=== PATIENT | female | born 1965 | race Caucasian/White ===

== ENCOUNTER 2017-03-31 06:58 | Emergency (ER) | payer OTHER ==
[2017-03-31] MEDS ORDERED: IBUPROFEN 600 MG TAB PO STA (07:14)
--- NOTE | 2017-03-31 07:20 | ED ---
Lower Extremity Injury HPI - General Chief Complaint: Extremity Injury, Upper Stated Complaint: Ankle pain Time Seen by Provider: 03/31/17 07:01 Source: patient Mode of arrival: ambulatory Limitations: no limitations - History of Present Illness Initial Comments: This is a 51-year-old female who presents emergency department for right ankle pain. She states that she was walking when she rolled her right ankle. She states that she immediately had pain however was able to continue to ambulate on the ankle. She states the pain is located on the lateral ankle and worse with movement or weightbearing. It seems to radiate down into the lateral aspect of her foot. She denies any knee pain or knee discomfort. Denies any other injuries. - Related Data Home Medications Medication Instructions Recorded Confirmed Furosemide [Lasix] 20 mg PO DAILY 08/15/14 08/15/14 Previous Rx's Medication Instructions Recorded Erythromycin Ophth Oint [Romycin 1 applic LEFT EYE TID #1 tube 08/15/14 Ophth Oint] Allergies Allergy/AdvReac Type Severity Reaction Status Date / Time venom-honey bee Allergy Swelling Verified 03/31/17 07:06 [bee venom (honey bee)] Review of Systems ROS Statement: Those systems with pertinent positive or pertinent negative responses have been documented in the HPI. ROS Other: All systems not noted in ROS Statement are negative. Past Medical History Past Medical History: Asthma, Sleep Apnea/CPAP/BIPAP Additional Past Medical History / Comment(s): HX OF VSD History of Any Multi-Drug Resistant Organisms: None Reported Past Surgical History: Bariatric Surgery, Hysterectomy, Orthopedic Surgery, Tonsillectomy, Tubal Ligation Additional Past Surgical History / Comment(s): LAP BAND SX NOW REMOVED, RT HAND SX Past Anesthesia/Blood Transfusion Reactions: No Reported Reaction Past Psychological History: Anxiety, Depression Smoking Status: Never smoker Past Alcohol Use History: None Reported Past Drug Use History: None Reported General Exam - General Exam Comments Initial Comments: Constitutional: Awake alert Appears comfortable Head: Normocephalic atraumatic Eyes: no conjunctival injection No scleral icterus EOMI Neck: No JVD Supple Heart: Regular rate rhythm normal S1-S2 no murmurs Lungs: Clear to auscultation bilaterally No wheezing No rales Abdomen: Soft nondistended nontender Extremities: Non edematous DP pulses intact Radial pulses intact, patient has mild tenderness along the lateral malleolus of the right foot and along the fifth metatarsal of the right foot. There is no significant ecchymosis or swelling. There is full range of motion, ankle mortise is intact. Anterior drawer testing is normal. Neurovascularly intact distal to the injury. Neuro: A&Ox3 No focal neurologic deficits Psych: Appropriate mood and affect Limitations: no limitations Course Vital Signs 03/31/17 07:00 Temperature 98 F Pulse Rate 78 Respiratory 20 Rate Blood Pressure 145/78 O2 Sat by Pulse 94 L Oximetry Medical Decision Making - Medical Decision Making This is a 51-year-old female who presents emergency department for right ankle pain after rolling her ankle. The patient had x-rays performed that showed a what appears to be new right distal lateral malleolus avulsion fracture. The joint was otherwise stable. The patient was placed in an air splint and written for crutches for home. Told nonweightbearing until reevaluated by orthopedics. The patient declined pain medications for home and states that she will use Tylenol or Motrin. Advised to return if she has worsening or changing symptoms. All questions were answered. Disposition Clinical Impression: Avulsion fracture of ankle Disposition: HOME SELF-CARE Condition: Stable Instructions: Avulsion Fracture (ED) Referrals: Dilcia Escoto MD [Primary Care Provider] - 1-2 days Brooks Hardin MD [STAFF PHYSICIAN] - 1-2 days
--- NOTE | 2017-03-31 07:43 | XR ---
EXAMINATION TYPE: XR ankle complete RT DATE OF EXAM: 03/31/2017 COMPARISON: NONE HISTORY: 51-year-old female ankle/foot pain after trauma, fall, lateral swelling TECHNIQUE: Previous FINDINGS: Corticated ossific densities below both malleoli. However, a curvilinear density at the inferior tip of the lateral malleolus may represent an acute minimally displaced fracture. There is some circumfer ential soft tissue swelling at the ankle. Talar dome appears intact. Ankle mortise is otherwise congr uent. Small to moderate-sized plantar calcaneal spur. Some posterior soft tissue swelling at the ankl e. IMPRESSION: 1. Chronic ununited fracture fragments below both malleoli. However, findings suspicious for a superi mposed, minimally displaced acute avulsion fracture from the inferior tip of the lateral malleolus. 2. Soft tissue swelling at the ankle and plantar calcaneal spur.
--- NOTE | 2017-03-31 07:44 | XR ---
EXAMINATION TYPE: XR foot complete RT DATE OF EXAM: 03/31/2017 COMPARISON: NONE HISTORY: 51-year-old female with ankle/foot pain after trauma, fall TECHNIQUE: 3 views FINDINGS: Redemonstrated tiny Nettles type A fracture lateral malleolus. Bipartite tibial sesamoid. Joint spaces throughout the foot are maintained. Plantar calcaneal spur. No other acute fracture or dislocation is seen. IMPRESSION: No additional acute osseous abnormality seen within the foot.
[2017-03-31 08:19] VITALS: BP 129/68; PULSE 66; RESP 18; TEMP 97.3
== END 2017-03-31 08:19 | disposition home or self-care (01) ==
LOC: EC 06:58
DX: S82.61XA Displaced fracture of lateral malleolus of right fibula, initial encounter for closed fracture (principal); G47.30 Sleep apnea, unspecified; Z79.899 Other long term (current) drug therapy; Z91.030 Bee allergy status; Z99.89 Dependence on other enabling machines and devices; X50.1XXA Overexertion from prolonged static or awkward postures, initial encounter; Y93.01 Activity, walking, marching and hiking; Y92.009 Unspecified place in unspecified non-institutional (private) residence as the place of occurrence of the external cause
CPT/HCPCS: 73610; 73630; 99283; L4350

== ENCOUNTER → 2017-06-24 | Outpatient (CLI) | payer OTHER ==
--- NOTE | 2017-06-26 11:12 | MM ---
Reason for exam: screening (asymptomatic). Last mammogram was performed 2 years and 3 months ago. History: Took hormonal contraceptives for 19 years beginning at age 14. Physical Findings: A clinical breast exam by your physician is recommended on an annual basis and results should be correlated with mammographic findings. MG 3D Screening Mammo W/Cad Bilateral CC and MLO view(s) were taken. Prior study comparison: March 29, 2015, bilateral MG 3d screening mammo w/cad. February 01, 2013, bilateral digital screening mammo w/CAD. There are scattered fibroglandular densities. No significant changes when compared with prior studies. ASSESSMENT: Negative, BI-RAD 1 RECOMMENDATION: Routine screening mammogram of both breasts in 1 year.
== END | disposition home or self-care (01) ==
LOC: RADMAMWWP 14:31
PROVIDERS: ATTEND Internal Medicine
DX: Z12.31 Encounter for screening mammogram for malignant neoplasm of breast (principal)
CPT/HCPCS: 77063; 77067

== ENCOUNTER 2019-05-10 19:06 | Inpatient (IN) | payer OTHER ==
[2019-05-10] MEDS ORDERED: IBUPROFEN 600 MG TAB PO STA (19:27)
--- NOTE | 2019-05-10 19:31 | ED ---
General Adult HPI - General Chief complaint: Upper Respiratory Infection Stated complaint: COVID symptoms Time Seen by Provider: 05/10/19 19:12 Source: patient Mode of arrival: ambulatory Limitations: no limitations - History of Present Illness Initial comments: Patient is a 53-year-old female history of exercise-induced asthma. presenting to the emergency Department with a chief complaint of cough and fever. Patient states symptoms have been ongoing for less than a week. Patient reports a nonproductive cough. Does report occasional sore throat after coughing fits. States she is not able to get a full night of sleep due to the coughing. That she went to the urgent care and was tested for influenza negative. States Covid test pending. Does report taking Tylenol at home and she is able to break the fever but it's refractory. Also reports shortness of breath during this time with occasional wheezing. Nonsmoker. She also reports loss of taste and smell over the last several days. Denies focal neural deficits. - Related Data Home Medications Medication Instructions Recorded Confirmed Albuterol Inhaler [Ventolin Hfa 1 - 2 puff INHALATION RT-Q6H PRN 05/10/19 05/10/19 Inhaler] Benzonatate [Tessalon Perles] 100 mg PO TID PRN 05/10/19 05/10/19 Escitalopram [Lexapro] 20 mg PO DAILY 05/10/19 05/10/19 Glucos Sul 2Kcl/MSM/Chond/C/Mn 1 cap PO DAILY 05/10/19 05/10/19 [Glucosamine Chondroitin Cap] Levothyroxine Sodium [Synthroid] 50 mcg PO DAILY 05/10/19 05/10/19 Lysine [l-Lysine] 500 mg PO DAILY 05/10/19 05/10/19 Turmeric Root Extract [Turmeric] 500 mg PO DAILY 05/10/19 05/10/19 Allergies Allergy/AdvReac Type Severity Reaction Status Date / Time venom-honey bee Allergy Swelling Verified 05/10/19 21:43 [bee venom (honey bee)] Review of Systems ROS Statement: Those systems with pertinent positive or pertinent negative responses have been documented in the HPI. ROS Other: All systems not noted in ROS Statement are negative. Past Medical History Past Medical History: Asthma, Sleep Apnea/CPAP/BIPAP Additional Past Medical History / Comment(s): HX OF VSD History of Any Multi-Drug Resistant Organisms: None Reported Past Surgical History: Bariatric Surgery, Hysterectomy, Orthopedic Surgery, Tonsillectomy, Tubal Ligation Additional Past Surgical History / Comment(s): LAP BAND SX NOW REMOVED, RT HAND SX Past Anesthesia/Blood Transfusion Reactions: No Reported Reaction Past Psychological History: Anxiety, Depression Smoking Status: Never smoker Past Alcohol Use History: None Reported Past Drug Use History: None Reported General Exam Limitations: no limitations General appearance: alert, in no apparent distress Head exam: Present: atraumatic, normocephalic, normal inspection Eye exam: Present: normal appearance, PERRL, EOMI Pupils: Present: normal accommodation ENT exam: Present: normal exam, normal oropharynx, mucous membranes moist, TM's normal bilaterally, normal external ear exam Neck exam: Present: normal inspection, full ROM Respiratory exam: Present: normal lung sounds bilaterally. Absent: respiratory distress, wheezes, rales Cardiovascular Exam: Present: regular rate, normal rhythm, normal heart sounds Extremities exam: Present: normal inspection, full ROM Back exam: Present: normal inspection, full ROM Neurological exam: Present: alert, oriented X3 Psychiatric exam: Present: normal affect, normal mood Skin exam: Present: warm, dry, intact, normal color Course Vital Signs 05/10/19 05/10/19 05/10/19 19:08 20:11 21:35 Temperature 101.2 F H 103.6 F H 101 F H Pulse Rate 88 86 86 Respiratory 18 22 20 Rate Blood Pressure 124/80 133/62 112/69 O2 Sat by Pulse 95 92 L 92 L Oximetry EKG Findings - EKG Comments: EKG Findings:: Sinus rhythm, no ST changes. Matriculated rate 82, VA 160, QRS 102, QTC 448 Medical Decision Making - Medical Decision Making Patient is a 53-year-old female with history of exercise-induced asthma presenting to the emergency department with a chief complaint of cough and shortness of breath. Physical examination reveals no wheezing, stridor or decreased breath sounds. Chest x-ray reveals development of right lower lobe pneumonia. CBC shows thrombocytopenia of 127. CMP shows slight elevation in enzymes. Patient is influenza-negative. Covid pending. Blood cultures pending. Troponin is negative. Lactic acid within normal limits. Patient started on Rocephin and azithromycin. Albuterol inhaler when necessary every 4 hours. Coags within normal limits. Patient given antipyretics and fluids. Patient is febrile and has an oxygen saturation of 92 on room air. High clinic al suspicion for Covid. Patient will be admitted for further medical management. also examined the patient and is in agreement with the treatment plan. Admitting physician is . Infectious disease consulted. Pulmonology consult. - Lab Data Result diagrams: 05/10/19 20:45 05/10/19 20:45 Lab Results 05/10/19 05/10/19 05/10/19 Range/Units 20:45 20:45 20:45 WBC 5.6 (3.8-10.6) k/uL RBC 5.22 (3.80-5.40) m/uL Hgb 14.0 (11.4-16.0) gm/dL Hct 42.6 (34.0-46.0) % MCV 81.5 (80.0-100.0) fL MCH 26.8 (25.0-35.0) pg MCHC 32.9 (31.0-37.0) g/dL RDW 13.1 (11.5-15.5) % PT 9.6 (9.0-12.0) sec INR 0.9 (<1.2) APTT 28.3 (22.0-30.0) sec Sodium 137 (137-145) mmol/L Potassium 3.9 (3.5-5.1) mmol/L Chloride 99 (98-107) mmol/L Carbon Dioxide 33 H (22-30) mmol/L Anion Gap 5 mmol/L BUN 9 (7-17) mg/dL Creatinine 0.60 (0.52-1.04) mg/dL Est GFR (CKD-EPI)AfAm >90 (>60 ml/min/1.73 sqM) Est GFR (CKD-EPI)NonAf >90 (>60 ml/min/1.73 sqM) Glucose 91 (74-99) mg/dL Plasma Lactic Acid Misael (0.7-2.0) mmol/L Calcium 8.6 (8.4-10.2) mg/dL Total Bilirubin 0.4 (0.2-1.3) mg/dL AST 52 H (14-36) U/L ALT 39 H (4-34) U/L Alkaline Phosphatase 102 (38-126) U/L Troponin I (0.000-0.034) ng/mL Total Protein 7.1 (6.3-8.2) g/dL Albumin 4.0 (3.5-5.0) g/dL Influenza Type A RNA (Not Detectd) Influenza Type B (PCR) (Not Detectd) 05/10/19 05/10/19 05/10/19 Range/Units 20:45 20:45 21:10 WBC (3.8-10.6) k/uL RBC (3.80-5.40) m/uL Hgb (11.4-16.0) gm/dL Hct (34.0-46.0) % MCV (80.0-100.0) fL MCH (25.0-35.0) pg MCHC (31.0-37.0) g/dL RDW (11.5-15.5) % PT (9.0-12.0) sec INR (<1.2) APTT (22.0-30.0) sec Sodium (137-145) mmol/L Potassium (3.5-5.1) mmol/L Chloride (98-107) mmol/L Carbon Dioxide (22-30) mmol/L Anion Gap mmol/L BUN (7-17) mg/dL Creatinine (0.52-1.04) mg/dL Est GFR (CKD-EPI)AfAm (>60 ml/min/1.73 sqM) Est GFR (CKD-EPI)NonAf (>60 ml/min/1.73 sqM) Glucose (74-99) mg/dL Plasma Lactic Acid Misael 0.9 (0.7-2.0) mmol/L Calcium (8.4-10.2) mg/dL Total Bilirubin (0.2-1.3) mg/dL AST (14-36) U/L ALT (4-34) U/L Alkaline Phosphatase (38-126) U/L Troponin I <0.012 (0.000-0.034) ng/mL Total Protein (6.3-8.2) g/dL Albumin (3.5-5.0) g/dL Influenza Type A RNA Not Detected (Not Detectd) Influenza Type B (PCR) Not Detected (Not Detectd) Disposition Clinical Impression: Pneumonia, Shortness of breath Disposition: ADMITTED IP TO THIS HOSP Condition: Fair Instructions (If sedation given, give patient instructions): Pneumonitis (ED) Additional Instructions: Patient will be admitted Is patient prescribed a controlled substance at d/c from ED?: No Referrals: Dilcia Escoto MD [Primary Care Provider] - 1-2 days Time of Disposition: 22:25
--- NOTE | 2019-05-10 19:54 | XR ---
EXAMINATION TYPE: XR chest 1V DATE OF EXAM: 05/10/2019 COMPARISON: 05/02/2010 INDICATION: Cough and fever TECHNIQUE: Single frontal view of the chest is obtained. FINDINGS: The heart size is upper limits of normal. The pulmonary vasculature is normal. Some mild increased lung markings are at the right lung base. Correlate for developing pneumonia. IMPRESSION: 1. Mild increased lung markings at the right diaphragm may be a small developing right lower lobe pne umonia. Follow-up can be performed as clinically indicated.
[2019-05-10] MEDS ORDERED: SODIUM CHLORIDE 0.9% 1,000 ML IV STA (20:13)
[2019-05-10 21:20] LABS: ALT 39 U/L (4-34); AST 52 U/L (14-36); African American GFR (CKD) >90 (>60 ml/min/1.73 sqM); Alkaline Phosphatase 102 U/L (38-126); Anion Gap 5 mmol/L; Blood Urea Nitrogen 9 mg/dL (7-17); Calcium 8.6 mg/dL (8.4-10.2); Carbon Dioxide 33 mmol/L (22-30); Chloride 99 mmol/L (98-107); Glucose 91 mg/dL (74-99); Non-African American GFR(CKD) >90 (>60 ml/min/1.73 sqM); Potassium 3.9 mmol/L (3.5-5.1); Sodium 137 mmol/L (137-145); Total Bilirubin 0.4 mg/dL (0.2-1.3); Total Protein 7.1 g/dL (6.3-8.2)
[2019-05-10 21:34] LABS: Basophils % (A) 0 %; Eosinophils % (A) 1 %; HCT 42.6 % (34.0-46.0); Lymphocytes # (A) 1.3 k/uL (1.0-4.8); Lymphocytes % (A) 24 %; MCH 26.8 pg (25.0-35.0); MCHC 32.9 g/dL (31.0-37.0); MCV 81.5 fL (80.0-100.0); Mean Platelet Volume 11.8; Monocytes # (A) 0.2 k/uL (0-1.0); Monocytes % (A) 3 %; Neutrophils % (A) 72 %; Platelet Count 123 k/uL (150-450); RBC 5.22 m/uL (3.80-5.40); RDW 13.1 % (11.5-15.5); WBC 5.6 k/uL (3.8-10.6)
[2019-05-10 21:35] LABS: INR 0.9 (<1.2); Partial Thromboplastin Time 28.3 sec (22.0-30.0); Prothrombin Time 9.6 sec (9.0-12.0)
[2019-05-10] MEDS ORDERED: cefTRIAXone IN SWFI 1,000 MG/10 ML SYRINGE IVP STA (21:36)
[2019-05-10] MEDS ORDERED: AZITHROMYCIN 500 MG in SODIUM CHLORIDE 0.9% 250 ML IVPB STA (21:51)
[2019-05-10 21:52] LABS: Hypochromasia (M) Present
[2019-05-10 21:53] LABS: Large Platelets Present
[2019-05-10] MEDS ORDERED: ACETAMINOPHEN TAB 500 MG TAB PO STA (21:56)
[2019-05-10] MEDS ORDERED: ALBUTEROL INHALER 60 PUFF/8 GM INHALER (BULK) INHALATION STA (21:57)
[2019-05-10] MEDS ORDERED: LORazepam 2 MG/ML INJ IV PRN (22:00)
[2019-05-10] MEDS ORDERED: oxyCODONE-APAP 5-325MG 1 EACH TAB PO PRN (22:00)
[2019-05-10] MEDS ORDERED: NALOXONE 0.4 MG/ML 1 ML VIAL IV PRN (22:00)
[2019-05-10] MEDS ORDERED: MORPHINE SULFATE 4 MG/ML SYRINGE IV PRN (22:00)
[2019-05-10] MEDS ORDERED: ALPRAZolam 0.25 MG TAB PO PRN (22:00)
[2019-05-10] MEDS: ACETAMINOPHEN TAB 325 MG TAB PO SCH (23:25)
[2019-05-11] MEDS: ACETAMINOPHEN TAB 325 MG TAB PO SCH ×4 (05:17→22:29)
[2019-05-11] MEDS ORDERED: ALBUTEROL INHALER 60 PUFF/8 GM INHALER (BULK) INHALATION PRN ×2 (06:09)
[2019-05-11] MEDS: ESCITALOPRAM 20 MG TAB PO SCH (08:17)
[2019-05-11] MEDS: LEVOTHYROXINE 50 MCG TAB PO SCH (08:17)
[2019-05-11] MEDS ORDERED: BENZONATATE 100 MG CAP PO PRN (09:00)
[2019-05-11] MEDS ORDERED: NON FORMULARY DRUG (Turmeric Root Extract [Turmeric] 500 MG) PO SCH (09:00)
[2019-05-11] MEDS ORDERED: LYSINE 500 MG PO SCH (09:00)
[2019-05-11] MEDS ORDERED: [UNRECOGNIZED DRUG - OTHER] PO SCH (09:00)
[2019-05-11] MEDS ORDERED: GLUCOS SUL PO SCH (09:00)
[2019-05-11] MEDS ORDERED: cefTRIAXone IN SWFI 1,000 MG/10 ML SYRINGE IVP SCH (09:00)
[2019-05-11] MEDS: HYDROXYCHLOROQUINE SULFATE 200 MG TAB PO SCH ×2 (12:06→22:29)
--- NOTE | 2019-05-11 14:25 | P.CNPUL ---
History of Present Illness Consult date: 05/11/19 Reason for consult: dyspnea, cough Chief complaint: Dyspnea, cough, fever History of present illness: 53-year-old female patient of Dr. Escoto past medical history of obstructive sleep apnea, with AHI score of 29.7 on CPAP, morbid obesity status post lap band, depression, hypothyroidism, mild intermittent bronchial asthma, history of hysterectomy, tonsillectomy, and tubal ligation, who presented to the emergency department on 05/10/2019 for evaluation of increasing cough. She reports history of nonproductive cough, sore throat, fever, and her symptoms started 10 days ago. She was recently seen in the urgent care for her symptoms, she was started on steroids, antibiotics, and an inhaler, quit 19 testing was sent. She reports fever that was refractory to Tylenol. Reports shortness of breath with occasional wheezing, loss of taste, and loss of smell. Denied any vomiting, she is slightly nauseous, and has had some diarrhea. Patient is a lifetime nonsmoker. 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 Chest x-ray in the emergency department showed mild increased lung markings at the right diaphragm with possibly be a small developing right lower lobe pneumonia. White blood cell, was 5.6, hemoglobin is 14.0, d-dimer was 0.63, INR was 0.9, sodium was 137, potassium is 3.9, chloride was 99, CO2 is 33, BUN was 9 and creatinine was 0.60, plasma lactic acid was normal at 0.9, AST was 52, ALT was 39, alkaline phosphatase was 102, LDH came back elevated at 788, troponin was negative at less than 0.012, C. difficile was negative, influenza screen was negative, COVID 19 is pending Review of Systems All systems: negative Constitutional: Denies chills, Denies fever Eyes: denies blurred vision, denies pain Ears, nose, mouth and throat: Denies headache, Denies sore throat Cardiovascular: Denies chest pain, Denies shortness of breath Respiratory: Reports cough, Reports dyspnea Gastrointestinal: Reports diarrhea, Denies abdominal pain, Denies nausea, Denies vomiting Genitourinary: Denies dysuria, Denies hematuria Musculoskeletal: Denies myalgias Integumentary: Denies pruritus, Denies rash Neurological: Denies numbness, Denies weakness Psychiatric: Denies anxiety, Denies depression Endocrine: Denies fatigue, Denies weight change Past Medical History Past Medical History: Asthma, Sleep Apnea/CPAP/BIPAP Additional Past Medical History / Comment(s): HX OF VSD History of Any Multi-Drug Resistant Organisms: None Reported Past Surgical History: Bariatric Surgery, Hysterectomy, Orthopedic Surgery, Tonsillectomy, Tubal Ligation Additional Past Surgical History / Comment(s): LAP BAND SX NOW REMOVED, RT HAND SX Past Anesthesia/Blood Transfusion Reactions: No Reported Reaction Past Psychological History: Anxiety, Depression Smoking Status: Never smoker Past Alcohol Use History: None Reported Past Drug Use History: None Reported - Past Family History Mother Family Medical History: Hyperlipidemia, Hypertension Father Family Medical History: Liver Disease Additional Family Medical History / Comment(s): chirrosis of the liver Medications and Allergies Home Medications Medication Instructions Recorded Confirmed Type Albuterol Inhaler [Ventolin Hfa 1 - 2 puff INHALATION RT-Q6H PRN 05/10/19 05/10/19 History Inhaler] Benzonatate [Tessalon Perles] 100 mg PO TID PRN 05/10/19 05/10/19 History Escitalopram [Lexapro] 20 mg PO DAILY 05/10/19 05/10/19 History Glucos Sul 2Kcl/MSM/Chond/C/Mn 1 cap PO DAILY 05/10/19 05/10/19 History [Glucosamine Chondroitin Cap] Levothyroxine Sodium [Synthroid] 50 mcg PO DAILY 05/10/19 05/10/19 History Lysine [l-Lysine] 500 mg PO DAILY 05/10/19 05/10/19 History Turmeric Root Extract [Turmeric] 500 mg PO DAILY 05/10/19 05/10/19 History Allergies Allergy/AdvReac Type Severity Reaction Status Date / Time venom-honey bee Allergy Swelling Verified 05/10/19 21:43 [bee venom (honey bee)] Physical Exam Vitals: Vital Signs Temp Pulse Pulse Resp BP BP Pulse Ox 05/11/19 12:00 97.9 F 67 16 95/53 98 05/11/19 09:36 98.5 F 71 16 104/55 95 05/11/19 04:00 98.3 F 65 18 103/63 96 05/11/19 00:00 98.5 F 65 18 103/63 96 03/30/20 22:14 100.6 F H 82 20 111/61 97 05/10/19 21:35 101 F H 86 20 112/69 92 L 05/10/19 20:11 103.6 F H 86 22 133/62 92 L 05/10/19 19:08 101.2 F H 88 18 124/80 95 Intake and Output 05/10/19 05/11/19 05/11/19 22:59 06:59 14:59 Intake Total 236 Balance 236 Intake: Oral 236 Other: Voiding Method Toilet Toilet # Voids 1 2 1 # Bowel Movements 1 Weight 127.006 kg 81.5 kg GENERAL EXAM: Alert, a pleasant, morbidly obese, 53-year-old white female, on 2 L of oxygen with a pulse ox of 94% comfortable in no apparent distress. HEAD: Normocephalic/atraumatic. EYES: Normal reaction of pupils, equal size. Conjunctiva pink, sclera white. NOSE: Clear with pink turbinates. THROAT: No erythema or exudates. NECK: No masses, no JVD, no thyroid enlargement, no adenopathy. CHEST: No chest wall deformity. Symmetrical expansion. LUNGS: Equal air entry with no crackles, wheeze, rhonchi or dullness. CVS: Regular rate and rhythm, normal S1 and S2, no gallops, no murmurs, no rubs ABDOMEN: Soft, nontender. No hepatosplenomegaly, normal bowel sounds, no guarding or rigidity. EXTREMITIES: No clubbing, no edema, no cyanosis, 2+ pulses and upper and lower extremities. MUSCULOSKELETAL: Muscle strength and tone normal. SPINE: No scoliosis or deformity SKIN: No rashes CENTRAL NERVOUS SYSTEM: Alert and oriented -3. No focal deficits, tone is normal in all 4 extremities. PSYCHIATRIC: Alert and oriented -3. Appropriate affect. Intact judgment and insight. Results - Laboratory Findings CBC and BMP: 05/10/19 20:45 05/10/19 20:45 PT/INR, D-dimer PT 9.6 sec (9.0-12.0) 05/10/19 20:45 INR 0.9 (<1.2) 05/10/19 20:45 D-Dimer 0.63 mg/L FEU (<0.60) H 05/11/19 10:35 Abnormal lab findings: Abnormal Labs 05/10/19 05/10/19 05/11/19 20:45 20:45 10:35 Plt Count 123 L D-Dimer 0.63 H Carbon Dioxide 33 H AST 52 H ALT 39 H Lactate Dehydrogenase 05/11/19 10:35 Plt Count D-Dimer Carbon Dioxide AST ALT Lactate Dehydrogenase 788 H - Diagnostic Findings Chest x-ray: report reviewed, image reviewed Assessment and Plan Plan: Assessment: #1. Acute febrile illness temp of 103.6F, chest x-ray showed possibility of developing right lower lobe pneumonia, and possibility of COVID 19 is being considered, and patient has been tested results are pending at this time. #2. Mild intermittent bronchial asthma #3. History of obstructive sleep apnea with AHI score of 29, on CPAP therapy #4. Morbid obesity, status post lap banding surgery with subsequent removal of the LAP-BAND #5. History of ventricular septal defect #6. History of anxiety #7. Never smoker Plan: We'll start hydroxychloroquine in addition to the Zithromax and Rocephin for high suspicion for Covid 19 infection. Will send pleural calcitonin level, doubt the possibility of right lower lobe pneumonia, will continue on current antibiotics, azithromycin and Rocephin. C. diff was negative, influenza screen was negative, Covid 19 testing is pending. Follow-up chest x-ray in the morning I performed a history & physical examination of the patient and discussed their management with my nurse practitioner, Felicita Chu. I reviewed the nurse practitioner's note and agree with the documented findings and plan of care. Lung sounds are positive for diminished breath sounds throughout the lung gamez. The findings and the impression was discussed with the patient. I attest to the documentation by the nurse practitioner. Time with Patient: Greater than 30
[2019-05-11] MEDS: DIPHENOX-ATROP 2.5-0.025 MG 1 EACH TAB PO PRN (16:52)
--- NOTE | 2019-05-11 17:00 | P.HPIM ---
History of Present Illness H&P Date: 05/11/19 Gloria Pierce is a 53-year-old female who presented to [facility] emergency room with a history of fever shortness of breath and nonproductive cough for the last 10 days, patient has been trying to take [id number]-[id number] medications including Tylenol, she was also seen at [facility], influenza A and B testing were negative Covid 19 test was sent, results are still pending, at that time patient was given a course of Zithromax and a course of prednisone, however her condition failed to improve she was still having spikes of temperature up to 104 and she decided to come to emergency room. Patient has a known history of asthma, obstructive sleep apnea, depression, hypothyroidism, and history of morbid obesity with history of lab band surgery. Past Medical History Past Medical History: Asthma, Sleep Apnea/CPAP/BIPAP Additional Past Medical History / Comment(s): HX OF VSD History of Any Multi-Drug Resistant Organisms: None Reported Past Surgical History: Bariatric Surgery, Hysterectomy, Orthopedic Surgery, Tonsillectomy, Tubal Ligation Additional Past Surgical History / Comment(s): LAP BAND SX NOW REMOVED, RT HAND SX Past Anesthesia/Blood Transfusion Reactions: No Reported Reaction Past Psychological History: Anxiety, Depression Smoking Status: Never smoker Past Alcohol Use History: None Reported Past Drug Use History: None Reported - Past Family History Mother Family Medical History: Hyperlipidemia, Hypertension Father Family Medical History: Liver Disease Additional Family Medical History / Comment(s): chirrosis of the liver Medications and Allergies Home Medications Medication Instructions Recorded Confirmed Type Albuterol Inhaler [Ventolin Hfa 1 - 2 puff INHALATION RT-Q6H PRN 05/10/19 05/10/19 History Inhaler] Benzonatate [Tessalon Perles] 100 mg PO TID PRN 05/10/19 05/10/19 History Escitalopram [Lexapro] 20 mg PO DAILY 05/10/19 05/10/19 History Glucos Sul 2Kcl/MSM/Chond/C/Mn 1 cap PO DAILY 05/10/19 05/10/19 History [Glucosamine Chondroitin Cap] Levothyroxine Sodium [Synthroid] 50 mcg PO DAILY 05/10/19 05/10/19 History Lysine [l-Lysine] 500 mg PO DAILY 05/10/19 05/10/19 History Turmeric Root Extract [Turmeric] 500 mg PO DAILY 05/10/19 05/10/19 History Allergies Allergy/AdvReac Type Severity Reaction Status Date / Time venom-honey bee Allergy Swelling Verified 05/10/19 21:43 [bee venom (honey bee)] Physical Exam Vitals: Vital Signs Temp Pulse Pulse Resp BP BP Pulse Ox 05/11/19 12:00 97.9 F 67 16 95/53 98 05/11/19 09:36 98.5 F 71 16 104/55 95 05/11/19 04:00 98.3 F 65 18 103/63 96 05/11/19 00:00 98.5 F 65 18 103/63 96 05/10/19 22:14 100.6 F H 82 20 111/61 97 05/10/19 21:35 101 F H 86 20 112/69 92 L 05/10/19 20:11 103.6 F H 86 22 133/62 92 L 05/10/19 19:08 101.2 F H 88 18 124/80 95 Intake and Output 05/11/19 05/11/19 05/11/19 06:59 14:59 22:59 Intake Total 236 Balance 236 Intake: Oral 236 Other: Voiding Method Toilet Toilet # Voids 2 1 # Bowel Movements 1 Weight 81.5 kg In general patient is alert and oriented 3 in no apparent distress HEENT head normocephalic and atraumatic Neck is supple no JVD no goiter no lymphadenopathy Chest exam reveals a few scattered rhonchi no wheezing Cardiac exam reveals regular heart sounds no gallops no murmurs Abdomen is soft nontender no organomegaly with normal bowel sounds Extremity exam reveals no edema no cyanosis or clubbing Neurological examination reveals no gross focal deficit Results CBC & Chem 7: 05/10/19 20:45 05/10/19 20:45 Labs: Abnormal Lab Results - Last 24 Hours (Table) 05/10/19 05/10/19 05/11/19 Range/Units 20:45 20:45 10:35 Plt Count 123 L (150-450) k/uL D-Dimer 0.63 H (<0.60) mg/L FEU Carbon Dioxide 33 H (22-30) mmol/L AST 52 H (14-36) U/L ALT 39 H (4-34) U/L Lactate Dehydrogenase (313-618) U/L Procalcitonin (0.02-0.09) ng/mL 05/11/19 05/11/19 Range/Units 10:35 10:35 Plt Count (150-450) k/uL D-Dimer (<0.60) mg/L FEU Carbon Dioxide (22-30) mmol/L AST (14-36) U/L ALT (4-34) U/L Lactate Dehydrogenase 788 H (313-618) U/L Procalcitonin 0.11 H (0.02-0.09) ng/mL Thrombosis Risk Factor Assmnt - Choose All That Apply Each Factor Represents 1 point: Age 41-60 years Thrombosis Risk Factor Assessment Total Risk Factor Score: 1 Thrombosis Risk Factor Assessment Level: Low Risk Assessment and Plan Plan: 1. febrile illness, with right lower lobe infiltrate suggestive of pneumonia, Covid 19 testing is pending 2. Underlying history of asthma 3. Underlying history of obstructive sleep apnea 4. Underlying history of morbid obesity with history of lab band surgery 5. Diarrhea, C. diff testing is negative 6. Underlying history of hypothyroidism 7. Underlying history of depression and anxiety At this time patient is maintained on IV Zithromax and IV Rocephin, hydroxychloroquine was added to her regimen on admission. Home medications reordered. Awaiting further testing results, and progression of clinical picture.
[2019-05-11] MEDS ORDERED: AZITHROMYCIN 500 MG in SODIUM CHLORIDE 0.9% 250 ML IVPB SCH (22:00)
--- NOTE | 2019-05-12 00:12 | P.CONS ---
History of Present Illness - Reason for Consult Consult date: 05/11/19 pneumonia Requesting physician: Dilcia Escoto - Chief Complaint shortness of breath and cough x 1 week - History of Present Illness Patient is a 53-year-old female with a past medical history pertinent for asthma presenting to the ER with chief complaints of fever and cough patient symptom has been going on for about a week the patient cough has been moderate in intensity has been mostly dry in nature did mention occasional sore throat but no other URI symptom patient also having some shortness of breath with it and some chills patient went to the urgent care with the patient did have influenza test which came back negative patient currently was tested for COVID- 19 which is currently pending with persistent and worsening of her symptoms the patient presented to hospital on arrival to the ER the patient did have a fever of 101 to 103 degrees Fahrenheit patient did not have significant tachycardia the patient did not have significant have significant lymphopenia either however the patient did have elevated elevated LDH and procalcitonin lactic acid was normal influenza testing negative patient did have a chest x-ray which shows mild increased lung marking with developing right lower lobe pneumonia patient has been admitted to the hospital she was started on Rocephin and Zithromax infectious was consulted for further recommendation regarding antibiotic therapy. Review of Systems Positive point has been mentioned in HPI rest of the systems are negative Past Medical History Past Medical History: Asthma, Sleep Apnea/CPAP/BIPAP Additional Past Medical History / Comment(s): HX OF VSD History of Any Multi-Drug Resistant Organisms: None Reported Past Surgical History: Bariatric Surgery, Hysterectomy, Orthopedic Surgery, Tonsillectomy, Tubal Ligation Additional Past Surgical History / Comment(s): LAP BAND SX NOW REMOVED, RT HAND SX Past Anesthesia/Blood Transfusion Reactions: No Reported Reaction Past Psychological History: Anxiety, Depression Smoking Status: Never smoker Past Alcohol Use History: None Reported Past Drug Use History: None Reported - Past Family History Mother Family Medical History: Hyperlipidemia, Hypertension Father Family Medical History: Liver Disease Additional Family Medical History / Comment(s): chirrosis of the liver Medications and Allergies Home Medications Medication Instructions Recorded Confirmed Type Albuterol Inhaler [Ventolin Hfa 1 - 2 puff INHALATION RT-Q6H PRN 05/10/19 05/10/19 History Inhaler] Benzonatate [Tessalon Perles] 100 mg PO TID PRN 05/10/19 05/10/19 History Escitalopram [Lexapro] 20 mg PO DAILY 05/10/19 05/10/19 History Glucos Sul 2Kcl/MSM/Chond/C/Mn 1 cap PO DAILY 05/10/19 05/10/19 History [Glucosamine Chondroitin Cap] Levothyroxine Sodium [Synthroid] 50 mcg PO DAILY 05/10/19 05/10/19 History Lysine [l-Lysine] 500 mg PO DAILY 05/10/19 05/10/19 History Turmeric Root Extract [Turmeric] 500 mg PO DAILY 05/10/19 05/10/19 History Allergies Allergy/AdvReac Type Severity Reaction Status Date / Time venom-honey bee Allergy Swelling Verified 05/10/19 21:43 [bee venom (honey bee)] Physical Exam Vitals: Vital Signs Temp Pulse Pulse Resp BP BP Pulse Ox 05/11/19 16:00 98.7 F 72 18 100/56 100 05/11/19 12:00 97.9 F 67 16 95/53 98 05/11/19 09:36 98.5 F 71 16 104/55 95 05/11/19 04:00 98.3 F 65 18 103/63 96 05/11/19 00:00 98.5 F 65 18 103/63 96 05/10/19 22:14 100.6 F H 82 20 111/61 97 05/10/19 21:35 101 F H 86 20 112/69 92 L 05/10/19 20:11 103.6 F H 86 22 133/62 92 L 05/10/19 19:08 101.2 F H 88 18 124/80 95 Intake and Output 05/11/19 05/11/19 05/11/19 06:59 14:59 22:59 Intake Total 236 Balance 236 Intake: Oral 236 Other: Voiding Method Toilet Toilet Toilet # Voids 2 1 # Bowel Movements 1 Weight 81.5 kg GENERAL DESCRIPTION: Middle-aged female lying in bed, no distress. No tachypnea or accessory muscle of respiration use. HEENT: Shows Pallor , no scleral icterus. Oral mucous membrane is dry. NECK: Trachea central, no thyromegaly. LUNGS: Unlabored breathing. Decreased breath sound at the base. No wheeze or crackle. HEART: S1, S2, regular rate and rhythm. ABDOMEN: Soft, no tenderness , guarding or rigidity EXTREMITIES: No edema of feet. SKIN: No rash, no masses palpable. NEUROLOGICAL: The patient is awake, alert, oriented x3, mood and affect normal. Results CBC & Chem 7: 05/10/19 20:45 05/10/19 20:45 Labs: Abnormal Lab Results - Last 24 Hours (Table) 05/10/19 05/10/19 05/11/19 Range/Units 20:45 20:45 10:35 Plt Count 123 L (150-450) k/uL D-Dimer 0.63 H (<0.60) mg/L FEU Carbon Dioxide 33 H (22-30) mmol/L AST 52 H (14-36) U/L ALT 39 H (4-34) U/L Lactate Dehydrogenase (313-618) U/L Procalcitonin (0.02-0.09) ng/mL 05/11/19 05/11/19 Range/Units 10:35 10:35 Plt Count (150-450) k/uL D-Dimer (<0.60) mg/L FEU Carbon Dioxide (22-30) mmol/L AST (14-36) U/L ALT (4-34) U/L Lactate Dehydrogenase 788 H (313-618) U/L Procalcitonin 0.11 H (0.02-0.09) ng/mL Assessment and Plan Assessment: patient presented to the hospital with fever cough which has been mostly dry in nature with some generalized weakness chest x-ray has been suggestive right lower lobe pneumonia and the patient did have elevated CRP could be more likely community-acquired pneumonia underlying viral pneumonia less likely but not entirely excluded (1) Pneumonia Current Visit: Yes Status: Acute Code(s): J18.9 - PNEUMONIA, UNSPECIFIED ORGANISM SNOMED Code(s): 943043261 (2) Suspected COVID-19 virus infection Current Visit: Yes Status: Acute Code(s): R68.89 - OTHER GENERAL SYMPTOMS AND SIGNS SNOMED Code(s): 917481531 Plan: 1-we will obtain a sputum for Gram stain and culture 2-await COVID-19 testing 3-Rocephin 1 g daily and Zithromax to cover for community-acquired pneumonia 4-add Plaquenil 400 g twice daily x2 doses followed by 12 mg twice a day for 4 days 5-continue with the droplet isolation We will follow on clinical condition and cultures to further adjust medication if needed Thank you for this consultation we will follow the patient along with you Time with Patient: Greater than 30
[2019-05-12] MEDS: ACETAMINOPHEN TAB 325 MG TAB PO SCH ×4 (04:09→21:16)
[2019-05-12 07:19] LABS: ALT 37 U/L (4-34); AST 48 U/L (14-36); African American GFR (CKD) >90 (>60 ml/min/1.73 sqM); Albumin 3.2 g/dL (3.5-5.0); Alkaline Phosphatase 85 U/L (38-126); Anion Gap 8 mmol/L; Blood Urea Nitrogen 6 mg/dL (7-17); Calcium 7.9 mg/dL (8.4-10.2); Carbon Dioxide 30 mmol/L (22-30); Chloride 103 mmol/L (98-107); Glucose 91 mg/dL (74-99); Non-African American GFR(CKD) >90 (>60 ml/min/1.73 sqM); Potassium 3.8 mmol/L (3.5-5.1); Sodium 141 mmol/L (137-145); Total Bilirubin 0.2 mg/dL (0.2-1.3); Total Protein 6.1 g/dL (6.3-8.2)
--- NOTE | 2019-05-12 07:32 | XR ---
EXAMINATION TYPE: XR chest 1V portable DATE OF EXAM: 05/12/2019 Comparison: 05/10/2019 Clinical History: 53-year-old female possible COVID Findings: Heart upper limits of normal in size. Aorta within normal limits. Increased interstitial density thro ughout. Some patchy density at the right base persists. Impression: Interstitial densities and right basilar infiltrate persist. Consider atypical pneumonias.
[2019-05-12 07:53] LABS: Basophils % (A) 0 %; Eosinophils # (A) 0.1 k/uL (0-0.7); Eosinophils % (A) 2 %; HCT 39.8 % (34.0-46.0); HGB 12.5 gm/dL (11.4-16.0); Lymphocytes # (A) 1.5 k/uL (1.0-4.8); Lymphocytes % (A) 26 %; MCH 26.6 pg (25.0-35.0); MCHC 31.5 g/dL (31.0-37.0); MCV 84.6 fL (80.0-100.0); Mean Platelet Volume 11.4; Monocytes # (A) 0.4 k/uL (0-1.0); Monocytes % (A) 6 %; Neutrophils # (A) 3.7 k/uL (1.3-7.7); Neutrophils % (A) 63 %; Platelet Count 133 k/uL (150-450); RBC 4.71 m/uL (3.80-5.40); RDW 13.2 % (11.5-15.5); WBC 5.8 k/uL (3.8-10.6)
[2019-05-12] MEDS: ESCITALOPRAM 20 MG TAB PO SCH (08:59)
[2019-05-12] MEDS: LEVOTHYROXINE 50 MCG TAB PO SCH (08:59)
[2019-05-12] MEDS: HYDROXYCHLOROQUINE SULFATE 200 MG TAB PO SCH ×2 (09:00→22:28)
[2019-05-12] MEDS: DIPHENOX-ATROP 2.5-0.025 MG 1 EACH TAB PO PRN ×2 (09:03→22:33)
[2019-05-12 11:52] LABS: Ferritin 304.4 ng/mL (10.0-291.0)
--- NOTE | 2019-05-12 13:52 | P.PN ---
Subjective Progress Note Date: 05/12/19 53-year-old female patient of Dr. Escoto past medical history of obstructive sleep apnea, with AHI score of 29.7 on CPAP, morbid obesity status post lap band, depression, hypothyroidism, mild intermittent bronchial asthma, history of hysterectomy, tonsillectomy, and tubal ligation, who presented to the emergency department on 05/10/2019 for evaluation of increasing cough. She reports history of nonproductive cough, sore throat, fever, and her symptoms started 10 days ago. She was recently seen in the urgent care for her symptoms, she was started on steroids, antibiotics, and an inhaler, quit 19 testing was sent. She reports fever that was refractory to Tylenol. Reports shortness of b reath with occasional wheezing, loss of taste, and loss of smell. Denied any vomiting, she is slightly nauseous, and has had some diarrhea. Patient is a lifetime nonsmoker. Patient is a massage therapist, however has been on [id number] order for the past 2 weeks. Chest x-ray in the emergency de partment showed mild increased lung markings at the right diaphragm with possibly be a small developing right lower lobe pneumonia. White blood cell, was 5.6, hemoglobin is 14.0, d-dimer was 0.63, INR was 0.9, sodium was 137, potassium is 3.9, chloride was 99, CO2 is 33, BUN was 9 and creatinine was 0.60, plasma lactic acid was normal at 0.9, AST was 52, ALT was 39, alkaline phosphatase was 102, LDH came back elevated at 788, troponin was negative at less than 0.012, C. difficile was negative, influenza screen was negative, COVID 19 is pending On 05/12/2019 patient seen in follow-up. She is feeling better today, she remains on small amount of supplemental oxygen, 2 L, her pulse ox of 95-97%, her fever pattern has significantly improved, she's been afebrile in the last 24 hours, hemodynamically stable, respirations are nonlabored, she does get short of breath with activity, seems quite comfortable at rest, still has some coughing spells. Today's labs have been reviewed, showing white blood cell count 5.8, hemoglobin of 12.5, d-dimer came back at 0.63, electrolytes were within normal limits, BUN of 6 creatinine 0.56 ferritin was elevated at 304, plasma lactic acid was normal at 0.9, AST was 48, ALT was 37, alkaline phosphatase was 85, lactate dehydrogenase was 788, pro calcitonin was 0.11, C. difficile was negative, her cold the testing is still pending, influenza was negative. Patient continues on plaque renal, and azithromycin for strong suspicion for covert 19 infection, however clinically she is improving, she was taken off the oxygen, and her pulse ox remained at 93-95% on room air at rest, we'll obtain oxygen assessment with ambulation. Patient states she would like to go home today. Objective - Vital Signs Vital signs: Vital Signs Temp 98.3 F 05/12/19 08:50 Pulse 68 05/12/19 08:50 Resp 19 05/12/19 08:50 BP 110/59 05/12/19 08:50 Pulse Ox 97 05/12/19 08:50 Intake & Output 05/11/19 05/12/19 05/12/19 18:59 06:59 18:59 Intake Total 236 720 Balance 236 720 Weight 95 kg Intake: Oral 236 720 Other: Voiding Method Toilet Toilet Toilet # Voids 3 2 2 # Bowel Movements 1 - Exam GENERAL EXAM: Alert, a pleasant, morbidly obese, 53-year-old white female, on 2 L of oxygen with a pulse ox of 94% comfortable in no apparent distress. HEAD: Normocephalic/atraumatic. EYES: Normal reaction of pupils, equal size. Conjunctiva pink, sclera white. NOSE: Clear with pink turbinates. THROAT: No erythema or exudates. NECK: No masses, no JVD, no thyroid enlargement, no adenopathy. CHEST: No chest wall deformity. Symmetrical expansion. LUNGS: Equal air entry with no crackles, wheeze, rhonchi or dullness. CVS: Regular rate and rhythm, normal S1 and S2, no gallops, no murmurs, no rubs ABDOMEN: Soft, nontender. No hepatosplenomegaly, normal bowel sounds, no guarding or rigidity. EXTREMITIES: No clubbing, no edema, no cyanosis, 2+ pulses and upper and lower extremities. MUSCULOSKELETAL: Muscle strength and tone normal. SPINE: No scoliosis or deformity SKIN: No rashes CENTRAL NERVOUS SYSTEM: Alert and oriented -3. No focal deficits, tone is normal in all 4 extremities. PSYCHIATRIC: Alert and oriented -3. Appropriate affect. Intact judgment and insight. - Labs CBC & Chem 7: 05/12/19 05:42 05/12/19 05:42 Labs: Abnormal Lab Results - Last 24 Hours (Table) 05/11/19 05/11/19 05/12/19 Range/Units 10:35 10:35 05:42 Plt Count 133 L (150-450) k/uL BUN (7-17) mg/dL Calcium (8.4-10.2) mg/dL Ferritin 304.4 H (10.0-291.0) ng/mL AST (14-36) U/L ALT (4-34) U/L Total Protein (6.3-8.2) g/dL Albumin (3.5-5.0) g/dL Procalcitonin 0.11 H (0.02-0.09) ng/mL 05/12/19 Range/Units 05:42 Plt Count (150-450) k/uL BUN 6 L (7-17) mg/dL Calcium 7.9 L (8.4-10.2) mg/dL Ferritin (10.0-291.0) ng/mL AST 48 H (14-36) U/L ALT 37 H (4-34) U/L Total Protein 6.1 L (6.3-8.2) g/dL Albumin 3.2 L (3.5-5.0) g/dL Procalcitonin (0.02-0.09) ng/mL Microbiology - Last 24 Hours (Table) 05/10/19 20:45 Blood Culture - Preliminary Blood No Growth after 24 hours Assessment and Plan Plan: Assessment: #1. Acute febrile illness temp of 103.6F, chest x-ray showed possibility of developing right lower lobe pneumonia, and possibility of COVID 19 is being considered, and patient has been tested results are pending at this time. #2. Mild intermittent bronchial asthma #3. History of obstructive sleep apnea with AHI score of 29, on CPAP therapy #4. Morbid obesity, status post lap banding surgery with subsequent removal of the LAP-BAND #5. History of ventricular septal defect #6. History of anxiety #7. Never smoker Plan: Continue current medical treatment, same antibiotics, Rocephin and Zithromax, Covid 19 testing is still pending, follow-up chest x-ray today still shows interstitial densities, and right basilar infiltrate with possibility of atypical pneumonia. She has been afebrile, her pro calcitonin level came back r elatively low at 0.11. Clinically stable, she is 95% on room air at rest, increase activity as tolerated, we'll obtain oxygen assessment with ambulation, she remains stable and maintaining oxygen saturation above 90 with ambulation she could possibly consider for discharge home today. I performed a history & physical examination of the patient and discussed their management with my nurse practitioner, Felicita Chu. I reviewed the nurse practitioner's note and agree with the documented findings and plan of care. Lung sounds are positive for diminished breath sounds throughout the lung fi elds. The findings and the impression was discussed with the patient. I attest to the documentation by the nurse practitioner. Time with Patient: Less than 30
--- NOTE | 2019-05-12 14:57 | P.PN ---
Subjective Progress Note Date: 05/12/19 Gloria Pierce is a 53-year-old female who presented to [facility] emergency room with a history of fever shortness of breath and nonproductive cough for the last 10 days, patient has been trying to take [id number]-nov-wiovxoc medications including Tylenol, she was also seen at [facility], influenza A and B testing were negative Covid 19 test was sent, results are still pending, at that time patient was given a course of Zithromax and a course of prednisone, however her condition failed to improve she was still having spikes of temperature up to 104 and she decided to come to emergency r oom. Patient has a known history of asthma, obstructive sleep apnea, depression, hypothyroidism, and history of morbid obesity with history of lab band surgery. On 05/12/2019 patient was seen and examined on the medical floor she is alert and oriented 3 in no apparent distress she is still complaining of cough and some shortness of breath but her major complaint at this time is diarrhea. Her fever has subsided there is no shaking chills no chest pain no nausea or vomiting no abdominal pain no burning with urination no frequency or urgency and no hematuria Objective - Vital Signs Vital signs: Vital Signs Temp 98.2 F 05/12/19 12:00 Pulse 68 05/12/19 12:00 Resp 19 05/12/19 12:00 BP 110/59 05/12/19 12:00 Pulse Ox 94 L 05/12/19 12:00 Intake & Output 05/11/19 05/12/19 05/12/19 18:59 06:59 18:59 Intake Total 236 720 Balance 236 720 Weight 95 kg Intake: Oral 236 720 Other: Voiding Method Toilet Toilet Toilet # Voids 3 2 2 # Bowel Movements 1 - Exam In general patient is alert and oriented 3 in no apparent distress HEENT head normocephalic and atraumatic Neck is supple no JVD no goiter no lymphadenopathy Chest exam reveals a few scattered rhonchi no wheezing Cardiac exam reveals regular heart sounds no gallops no murmurs Abdomen is soft nontender no organomegaly with normal bowel sounds Extremity exam reveals no edema no cyanosis or clubbing Neurological examination reveals no gross focal deficit - Labs CBC & Chem 7: 05/12/19 05:42 05/12/19 05:42 Labs: Abnormal Lab Results - Last 24 Hours (Table) 05/11/19 05/11/19 05/12/19 Range/Units 10:35 10:35 05:42 Plt Count 133 L (150-450) k/uL BUN (7-17) mg/dL Calcium (8.4-10.2) mg/dL Ferritin 304.4 H (10.0-291.0) ng/mL AST (14-36) U/L ALT (4-34) U/L Total Protein (6.3-8.2) g/dL Albumin (3.5-5.0) g/dL Procalcitonin 0.11 H (0.02-0.09) ng/mL 05/12/19 Range/Units 05:42 Plt Count (150-450) k/uL BUN 6 L (7-17) mg/dL Calcium 7.9 L (8.4-10.2) mg/dL Ferritin (10.0-291.0) ng/mL AST 48 H (14-36) U/L ALT 37 H (4-34) U/L Total Protein 6.1 L (6.3-8.2) g/dL Albumin 3.2 L (3.5-5.0) g/dL Procalcitonin (0.02-0.09) ng/mL Microbiology - Last 24 Hours (Table) 05/10/19 20:45 Blood Culture - Preliminary Blood No Growth after 24 hours Assessment and Plan Plan: 1. febrile illness, with right lower lobe infiltrate suggestive of pneumonia, Covid 19 testing is pending 2. Underlying history of asthma 3. Underlying history of obstructive sleep apnea 4. Underlying history of morbid obesity with history of lab band surgery 5. Diarrhea, C. diff testing is negative 6. Underlying history of hypothyroidism 7. Underlying history of depression and anxiety At this time patient is maintained on IV Zithromax and IV Rocephin, hydroxychloroquine was added to her regimen on admission. Home medications reordered. Awaiting further testing results, and progression of clinical picture.
--- NOTE | 2019-05-12 17:00 | PN ---
PROGRESS NOTE DATE OF SERVICE: 05/12/2019 REASON FOR FOLLOWUP: Acute COVID-19 pneumonia. INTERVAL HISTORY: The patient's overall fever pattern has improved and the patient is afebrile today. The patient is breathing comfortably. Denies having any chest pain. Occasional cough. No nausea, no vomiting. No abdominal pain, no diarrhea. PHYSICAL EXAMINATION: Blood pressure 110/59 with a pulse of 68, temperature 98.2 she is 94% on room General description is a middle-aged female lying in bed in no distress. RESPIRATORY SYSTEM: Unlabored breathing, clear to auscultation anteriorly/ HEART S1, S2. Regular rate and rhythm. ABDOMEN: Soft, no tenderness. LABS: Hemoglobin is 12.4, white count 5.8. BUN of 6 creatinine 0.56. DIAGNOSTIC IMPRESSION AND PLAN: Patient has acute COVID-19 virus pneumonia. Patient is clinically responding to Plaquenil, zinc to continue to finish a 5-day course of therapy and monitor clinical course closely. Continue supportive care. MMODL / IJN: [id number] /
[2019-05-12] MEDS ORDERED: ALBUTEROL HFA INHALER INHALATION PRN (18:16)
[2019-05-12 21:38] VITALS: RESP 16
[2019-05-12] MEDS ORDERED: AZITHROMYCIN 500 MG TAB PO SCH (22:00)
[2019-05-13] MEDS: ACETAMINOPHEN TAB 325 MG TAB PO SCH (06:07)
[2019-05-13 07:40] LABS: ALT 42 U/L (4-34); AST 52 U/L (14-36); African American GFR (CKD) >90 (>60 ml/min/1.73 sqM); Albumin 3.2 g/dL (3.5-5.0); Alkaline Phosphatase 88 U/L (38-126); Anion Gap 5 mmol/L; Blood Urea Nitrogen 8 mg/dL (7-17); Calcium 8.3 mg/dL (8.4-10.2); Carbon Dioxide 31 mmol/L (22-30); Chloride 104 mmol/L (98-107); Glucose 97 mg/dL (74-99); Non-African American GFR(CKD) >90 (>60 ml/min/1.73 sqM); Sodium 140 mmol/L (137-145); Total Bilirubin 0.4 mg/dL (0.2-1.3); Total Protein 6.3 g/dL (6.3-8.2)
[2019-05-13 07:47] LABS: Basophils % (A) 0 %; Eosinophils # (A) 0.1 k/uL (0-0.7); Eosinophils % (A) 3 %; HCT 40.6 % (34.0-46.0); HGB 12.8 gm/dL (11.4-16.0); Lymphocytes # (A) 1.3 k/uL (1.0-4.8); Lymphocytes % (A) 23 %; MCH 26.6 pg (25.0-35.0); MCHC 31.6 g/dL (31.0-37.0); MCV 83.9 fL (80.0-100.0); Mean Platelet Volume 10.8; Monocytes # (A) 0.3 k/uL (0-1.0); Monocytes % (A) 4 %; Neutrophils % (A) 67 %; Platelet Count 158 k/uL (150-450); RBC 4.84 m/uL (3.80-5.40); RDW 13.1 % (11.5-15.5); WBC 5.9 k/uL (3.8-10.6)
[2019-05-13] MEDS: ESCITALOPRAM 20 MG TAB PO SCH (08:51)
[2019-05-13] MEDS: LEVOTHYROXINE 50 MCG TAB PO SCH (08:52)
[2019-05-13] MEDS: HYDROXYCHLOROQUINE SULFATE 200 MG TAB PO SCH (08:52)
[2019-05-13 08:55] VITALS: PULSE 68; TEMP 98.5
[2019-05-13 12:12] VITALS: BP 124/75
--- NOTE | 2019-05-13 13:10 | P.DS ---
Providers Date of admission: 05/10/19 22:12 Expected date of discharge: 05/13/19 Attending physician: Dilcia Escoto Consults: 05/10/19 22:00 Consult Physician Stat Consulting Provider: Huey He Consult Reason/Comments: Pneumonia, shortness of breath, possible COVID Do you want consulting provider notified?: Yes 05/10/19 22:14 Consult Physician Stat Consulting Provider: Ace Anand Consult Reason/Comments: Shortness of breath, pneumonia, possible Covid Do you want consulting provider notified?: Yes Primary care physician: [facility] Course: Diagnosis on discharge: 1. pneumonia, with Covid 19 virus 2. Underlying history of asthma 3. Underlying history of obstructive sleep apnea 4. Underlying history of morbid obesity with history of lab band surgery 5. Diarrhea, C. diff testing is negative 6. Underlying history of hypothyroidism 7. Underlying history of depression and anxiety 8. Gastroenteritis with diarrhea, likely related to Covid 19 virus, improved with [facility] course: Gloria Pierce is a 53-year-old female who presented to [facility] emergency room with a history of fever shortness of breath and nonproductive cough for the last 10 days, patient has been trying to take ggmn-mmn-[id number] medications including Tylenol, she was also seen at [facility], influenza A and B testing were negative Covid 19 test was sent, results are still pending, at that time patient was given a course of Zithromax and a course of prednisone, however her condition failed to improve she was still having spikes of temperature up to 104 and she decided to come to emergency room. Patient has a known history of asthma, obstructive sleep apnea, depression, hyp othyroidism, and history of morbid obesity with history of lab band surgery. On 05/12/2019 patient was seen and examined on the medical floor she is alert and oriented 3 in no apparent distress she is still complaining of cough and some shortness of breath but her major complaint at this time is diarrhea. Her fever has subsided there is no shaking chills no chest pain no nausea or vomiting no abdominal pain no burning with urination no frequency or urgency and no hematuria On 05/13/2019 patient was seen and examined on the medical floor she is alert and oriented 3 in no apparent distress she is still complaining of diarrhea but has improved significantly since yesterday she still has some cough and some shortness of breath otherwise she denies any complaints there is no fever or chills no headache or dizziness no chest pain no nausea or vomiting no abdominal pain and no urinary symptoms patient was cleared by pulmonary and infectious disease for discharge. I contacted Dr. anand infectious disease, and he recommends continuing Plaquenil 200 mg twice a day for 3 more days, and stopping all antibiotics at this time. Patient was discharged home she will be followed in our office as needed she has information to contact me if needed. She was advised to return to the hospital if having high fever or difficulty breathing. Patient Condition at Discharge: Fair Plan - Discharge Summary New Discharge Prescriptions: New Diphenox-Atrop 2.5-0.025 mg [Lomotil] 1 each PO Q6HR PRN tab PRN Reason: Diarrhea Acetaminophen Tab [Tylenol] 650 mg PO Q6H tab ALPRAZolam [Xanax] 0.25 mg PO Q6HR PRN tab PRN Reason: Anxiety Continue Lysine [l-Lysine] 500 mg PO DAILY Albuterol Inhaler (Bulk) [Ventolin Hfa Inhaler (Bulk)] 1 - 2 puff INHALATION RT-Q6H PRN PRN Reason: Shortness Of Breath Turmeric Root Extract [Turmeric] 500 mg PO DAILY Levothyroxine Sodium [Synthroid] 50 mcg PO DAILY Glucos Sul 2Kcl/MSM/Chond/C/Mn [Glucosamine Chondroitin Cap] 1 cap PO DAILY Escitalopram [Lexapro] 20 mg PO DAILY Benzonatate [Tessalon Perles] 100 mg PO TID PRN PRN Reason: Cough Discharge Medication List Albuterol Inhaler (Bulk) [Ventolin Hfa Inhaler (Bulk)] 1 - 2 puff INHALATION RT- Q6H PRN 05/10/19 [History] Benzonatate [Tessalon Perles] 100 mg PO TID PRN 05/10/19 [History] Escitalopram [Lexapro] 20 mg PO DAILY 05/10/19 [History] Glucos Sul 2Kcl/MSM/Chond/C/Mn [Glucosamine Chondroitin Cap] 1 cap PO DAILY 05/10/19 [History] Levothyroxine Sodium [Synthroid] 50 mcg PO DAILY 05/10/19 [History] Lysine [l-Lysine] 500 mg PO DAILY 05/10/19 [History] Turmeric Root Extract [Turmeric] 500 mg PO DAILY 05/10/19 [History] ALPRAZolam [Xanax] 0.25 mg PO Q6HR PRN tab 05/13/19 [Rx] Acetaminophen Tab [Tylenol] 650 mg PO Q6H tab 05/13/19 [Rx] Diphenox-Atrop 2.5-0.025 mg [Lomotil] 1 each PO Q6HR PRN tab 05/13/19 [Rx] Follow up Appointment(s)/Referral(s): Dilcia Escoto MD [Primary Care Provider] - 1-2 days Patient Instructions/Handouts: Pneumonitis (ED) Activity/Diet/Wound Care/Special Instructions: Patient will be admitted
--- NOTE | 2019-05-13 13:45 | PN ---
PROGRESS NOTE DATE OF SERVICE: 05/13/2019 REASON FOR FOLLOWUP: Acute COVID-19 pneumonia. INTERVAL HISTORY: The patient is currently afebrile. The patient is breathing comfortably. Patient denies having any chest pain. Minimal cough. No nausea, no vomiting. No abdominal pain, no diarrhea. PHYSICAL EXAMINATION: Blood pressure is 124/75, pulse of 68, temperature 98.5. She is 95% on room air. General description is a middle-aged female up in the bed in no distress. RESPIRATORY SYSTEM: Unlabored breathing, decreased breath sounds at the bases. No wheeze. HEART: S1, S2. Regular rate and rhythm. ABDOMEN: Soft, no tenderness. LABS: White count normal. No lymphopenia. Liver enzymes mildly elevated. DIAGNOSTIC IMPRESSION AND PLAN: Patient admitted to the hospital with acute COVID-19 pneumonia. Patient has shown overall clinical improvement. She will finish therapy with Plaquenil 200 mg b.i.d. for 3 more days and continue with supportive care. Plan of care was discussed with the admitting physician working on discharge. MMSAMIRA / ALBERTA: [id number] /
--- NOTE | 2019-05-13 15:32 | P.PN ---
Subjective Progress Note Date: 05/13/19 53-year-old female patient of Dr. Escoto past medical history of obstructive sleep apnea, with AHI score of 29.7 on CPAP, morbid obesity status post lap band, depression, hypothyroidism, mild intermittent bronchial asthma, history of hysterectomy, tonsillectomy, and tubal ligation, who presented to the emergency department on 05/10/2019 for evaluation of increasing cough. She reports history of nonproductive cough, sore throat, fever, and her symptoms started 10 days ago. She was recently seen in the urgent care for her symptoms, she was started on steroids, antibiotics, and an inhaler, quit 19 testing was sent. She reports fever that was refractory to Tylenol. Reports shortness of b reath with occasional wheezing, loss of taste, and loss of smell. Denied any vomiting, she is slightly nauseous, and has had some diarrhea. Patient is a lifetime nonsmoker. 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 Chest x-ray in the emergency de partment showed mild increased lung markings at the right diaphragm with possibly be a small developing right lower lobe pneumonia. White blood cell, was 5.6, hemoglobin is 14.0, d-dimer was 0.63, INR was 0.9, sodium was 137, potassium is 3.9, chloride was 99, CO2 is 33, BUN was 9 and creatinine was 0.60, plasma lactic acid was normal at 0.9, AST was 52, ALT was 39, alkaline phosphatase was 102, LDH came back elevated at 788, troponin was negative at less than 0.012, C. difficile was negative, influenza screen was negative, COVID 19 is pending On 05/12/2019 patient seen in follow-up. She is feeling better today, she remains on small amount of supplemental oxygen, 2 L, her pulse ox of 95-97%, her fever pattern has significantly improved, she's been afebrile in the last 24 hours, hemodynamically stable, respirations are nonlabored, she does get short of breath with activity, seems quite comfortable at rest, still has some coughing spells. Today's labs have been reviewed, showing white blood cell count 5.8, hemoglobin of 12.5, d-dimer came back at 0.63, electrolytes were within normal limits, BUN of 6 creatinine 0.56 ferritin was elevated at 304, plasma lactic acid was normal at 0.9, AST was 48, ALT was 37, alkaline phosphatase was 85, lactate dehydrogenase was 788, pro calcitonin was 0.11, C. difficile was negative, her cold the testing is still pending, influenza was negative. Patient continues on plaque renal, and azithromycin for strong suspicion for covert 19 infection, however clinically she is improving, she was taken off the oxygen, and her pulse ox remained at 93-95% on room air at rest, we'll obtain oxygen assessment with ambulation. Patient states she would like to go home today. On 05/13/2019 patient seen in follow-up on selective care unit, she is resting comfortably in bed, her cough has subsided, she is feeling better, breathing easier, pulse ox on room air is 95%, hemodynamically stable, respirations are nonlabored, patient has not had any febrile episodes in the last 24 hours, today's labs have been reviewed, showing CBC within normal limits, electrolytes are relatively unremarkable with exception of CO2 which is at 31, mildly elevated, C. diff was negative, probe calcitonin was low at 0.11, patient has tolerated ambulation, her COVID 19 status was positive. But clinically she is improving, she can consider for discharge home today. Objective - Vital Signs Vital signs: Vital Signs Temp 98.5 F 05/13/19 08:00 Pulse 68 05/13/19 12:00 Resp 16 05/13/19 12:00 BP 124/75 05/13/19 12:00 Pulse Ox 95 05/13/19 12:00 Intake & Output 05/12/19 05/13/19 05/13/19 18:59 06:59 18:59 Intake Total 840 540 236 Balance 840 540 236 Weight 95.9 kg Intake: Oral 840 540 236 Other: Voiding Method Toilet Toilet Toilet # Voids 2 1 - Exam GENERAL EXAM: Alert, a pleasant, morbidly obese, 53-year-old white female, on room airwith a pulse ox of 95% comfortable in no apparent distress. HEAD: Normocephalic/atraumatic. EYES: Normal reaction of pupils, equal size. Conjunctiva pink, sclera white. NOSE: Clear with pink turbinates. THROAT: No erythema or exudates. NECK: No masses, no JVD, no thyroid enlargement, no adenopathy. CHEST: No chest wall deformity. Symmetrical expansion. LUNGS: Equal air entry with no crackles, wheeze, rhonchi or dullness. CVS: Regular rate and rhythm, normal S1 and S2, no gallops, no murmurs, no rubs ABDOMEN: Soft, nontender. No hepatosplenomegaly, normal bowel sounds, no guarding or rigidity. EXTREMITIES: No clubbing, no edema, no cyanosis, 2+ pulses and upper and lower extremities. MUSCULOSKELETAL: Muscle strength and tone normal. SPINE: No scoliosis or deformity SKIN: No rashes CENTRAL NERVOUS SYSTEM: Alert and oriented -3. No focal deficits, tone is normal in all 4 extremities. PSYCHIATRIC: Alert and oriented -3. Appropriate affect. Intact judgment and insight. - Labs CBC & Chem 7: 05/13/19 07:01 05/13/19 07:01 Labs: Abnormal Lab Results - Last 24 Hours (Table) 05/13/19 Range/Units 07:01 Carbon Dioxide 31 H (22-30) mmol/L Calcium 8.3 L (8.4-10.2) mg/dL AST 52 H (14-36) U/L ALT 42 H (4-34) U/L Albumin 3.2 L (3.5-5.0) g/dL Microbiology - Last 24 Hours (Table) 05/10/19 20:45 Blood Culture - Preliminary Blood No Growth after 48 hours Assessment and Plan Plan: Assessment: #1. Acute febrile illness temp of 103.6F, chest x-ray showed possibility of developing right lower lobe pneumonia, and positive COVID 19 infection #2. Mild intermittent bronchial asthma #3. History of obstructive sleep apnea with AHI score of 29, on CPAP therapy #4. Morbid obesity, status post lap banding surgery with subsequent removal of the LAP-BAND #5. History of ventricular septal defect #6. History of anxiety #7. Never smoker Plan: Patient's clinically stable, she is on room air, tolerating ambulation, her: 19 status was positive, her symptoms were relatively mild, she is improving, her cough is improving, she has been afebrile in the last 24 hours, patient can consider for discharge home today, she was advised to remain in self quarantine for another 1-2 weeks I performed a history & physical examination of the patient and discussed their management with my nurse practitioner, Felicita Chu. I reviewed the nurse practitioner's note and agree with the documented findings and plan of care. Lung sounds are positive for diminished breath sounds throughout the lung gamez. The findings and the impression was discussed with the patient. I attest to the documentation by the nurse practitioner. Time with Patient: Less than 30
== END 2019-05-13 14:31 | disposition home or self-care (01) | DRG 177 ==
LOC: EC 19:06 → 3SCARD 22:12
PROVIDERS: ADMIT Internal Medicine; ATTEND Internal Medicine
DX: U07.1 COVID-19 (principal); J12.89 Other viral pneumonia; A08.39 Other viral enteritis; D69.6 Thrombocytopenia, unspecified; J45.20 Mild intermittent asthma, uncomplicated; E03.9 Hypothyroidism, unspecified; G47.33 Obstructive sleep apnea (adult) (pediatric); E66.01 Morbid (severe) obesity due to excess calories; Z68.34 Body mass index [BMI] 34.0-34.9, adult; F32.9 Major depressive disorder, single episode, unspecified; F41.9 Anxiety disorder, unspecified; Z79.890 Hormone replacement therapy; Z79.899 Other long term (current) drug therapy; Z99.89 Dependence on other enabling machines and devices; Z87.74 Personal history of (corrected) congenital malformations of heart and circulatory system; Z90.710 Acquired absence of both cervix and uterus; Z98.84 Bariatric surgery status; Z98.51 Tubal ligation status; Z98.890 Other specified postprocedural states; Z91.030 Bee allergy status; Z82.49 Family history of ischemic heart disease and other diseases of the circulatory system; Z83.49 Family history of other endocrine, nutritional and metabolic diseases; Z83.79 Family history of other diseases of the digestive system
CPT/HCPCS: 36415; 71045; 80053; 82728; 83605; 83615; 84145; 84484; 85025; 85379; 85610; 85730; 87040; 87324; 87502; 93005; 96361; 96365; 96375; 99285

== ENCOUNTER → 2020-02-07 | Outpatient (CLI) | payer OTHER ==
--- NOTE | 2020-02-08 14:31 | MM ---
Reason for exam: screening (asymptomatic). Last mammogram was performed 2 years and 7 months ago. History: Patient is postmenopausal. Took hormonal contraceptives for 19 years beginning at age 14. Physical Findings: A clinical breast exam by your physician is recommended on an annual basis and results should be correlated with mammographic findings. MG 3D Screening Mammo W/Cad Bilateral CC and MLO view(s) were taken. Prior study comparison: June 24, 2017, bilateral MG 3d screening mammo w/cad. March 29, 2015, bilateral MG 3d screening mammo w/cad. There are scattered fibroglandular densities. No significant changes when compared with prior studies. ASSESSMENT: Benign, BI-RAD 2 RECOMMENDATION: Routine screening mammogram of both breasts in 1 year.
== END | disposition home or self-care (01) ==
LOC: RADMAMWWP 12:42
PROVIDERS: ATTEND Internal Medicine
DX: Z12.31 Encounter for screening mammogram for malignant neoplasm of breast (principal)
CPT/HCPCS: 77063; 77067

== ENCOUNTER 2021-03-31 14:36 | Emergency (ER) | payer OTHER ==
[2021-03-31 14:40] VITALS: TEMP 97.9
--- NOTE | 2021-03-31 16:04 | US ---
EXAMINATION TYPE: US venous doppler duplex LE LT DATE OF EXAM: 03/31/2021 3:56 PM COMPARISON: NONE CLINICAL HISTORY: pain. Left leg pain post fall from 03/25/2021 SIDE PERFORMED: Left TECHNIQUE: The lower extremity deep venous system is examined utilizing real time linear array sonog claudia with graded compression, doppler sonography and color-flow sonography. VESSELS IMAGED: Common Femoral Vein Deep Femoral Vein Greater Saphenous Vein * Femoral Vein Popliteal Vein Small Saphenous Vein * Proximal Calf Veins (* superficial vessels) Left Leg: Negative for DVT Limited due patient body habitus, no DVT seen at this time. IMPRESSION: No evidence of deep vein thrombosis in the left leg.
--- NOTE | 2021-03-31 16:06 | ED ---
Fall HPI - General Chief Complaint: Fall Stated Complaint: Fall-L leg pain Time Seen by Provider: 03/31/21 14:42 Source: patient, RN notes reviewed Mode of arrival: ambulatory Limitations: no limitations - History of Present Illness Initial Comments: This a 55-year-old female presents emergency Department chief complaint of left leg pain. Patient states she slipped and fell on some rocks 6 days ago. Patient went to worsen bruising, pain to the left pelvic, hip region. Patient was seen at urgent care sent here for evaluation of possible DVT. She denies any chest pain or shortness breath no headache no dizziness. She states is bruising all over worse when she sits causes increasing pain. Denies any bowel bladder incontinence or retention. - Related Data Home Medications Medication Instructions Recorded Confirmed Albuterol Inhaler (Mhu) [Ventolin 1 - 2 puff INHALATION RT-Q6H PRN 05/10/19 05/10/19 Hfa Inhaler (Mhu)] Benzonatate [Tessalon Perles] 100 mg PO TID PRN 05/10/19 05/10/19 Escitalopram [Lexapro] 20 mg PO DAILY 05/10/19 05/10/19 Glucos Sul 2Kcl/MSM/Chond/C/Mn 1 cap PO DAILY 05/10/19 05/10/19 [Glucosamine Chondroitin Cap] Levothyroxine Sodium [Synthroid] 50 mcg PO DAILY 05/10/19 05/10/19 Lysine [l-Lysine] 500 mg PO DAILY 05/10/19 05/10/19 Turmeric Root Extract [Turmeric] 500 mg PO DAILY 05/10/19 05/10/19 Previous Rx's Medication Instructions Recorded ALPRAZolam [Xanax] 0.25 mg PO Q6HR PRN tab 05/13/19 Acetaminophen Tab [Tylenol] 650 mg PO Q6H tab 05/13/19 Diphenox-Atrop 2.5-0.025 mg 1 each PO Q6HR PRN tab 05/13/19 [Lomotil] Allergies Allergy/AdvReac Type Severity Reaction Status Date / Time venom-honey bee Allergy Swelling Verified 03/31/21 14:40 [bee venom (honey bee)] Review of Systems ROS Statement: Those systems with pertinent positive or pertinent negative responses have been documented in the HPI. ROS Other: All systems not noted in ROS Statement are negative. Past Medical History Past Medical History: Asthma, Sleep Apnea/CPAP/BIPAP Additional Past Medical History / Comment(s): HX OF VSD History of Any Multi-Drug Resistant Organisms: None Reported Past Surgical History: Bariatric Surgery, Hysterectomy, Orthopedic Surgery, Tonsillectomy, Tubal Ligation Additional Past Surgical History / Comment(s): LAP BAND SX NOW REMOVED, RT HAND SX Past Anesthesia/Blood Transfusion Reactions: No Reported Reaction Past Psychological History: Anxiety, Depression Smoking Status: Never smoker Past Alcohol Use History: None Reported Past Drug Use History: None Reported - Past Family History Mother Family Medical History: Hyperlipidemia, Hypertension Father Family Medical History: Liver Disease Additional Family Medical History / Comment(s): chirrosis of the liver General Exam Limitations: no limitations General appearance: alert, in no apparent distress Head exam: Present: atraumatic, normocephalic, normal inspection Eye exam: Present: normal appearance, PERRL, EOMI. Absent: scleral icterus, conjunctival injection, periorbital swelling ENT exam: Present: normal exam, normal oropharynx, mucous membranes moist Neck exam: Present: normal inspection, full ROM. Absent: tenderness Respiratory exam: Present: normal lung sounds bilaterally. Absent: respiratory distress, wheezes, rales, rhonchi, stridor Cardiovascular Exam: Present: regular rate, normal rhythm, normal heart sounds. Absent: systolic murmur, diastolic murmur, rubs, gallop, clicks Extremities exam: Present: other (Posterior thigh region some of buttocks, mild bruising the calf region on the left and right anterior mendoza pulse are equal bilaterally neurovascular intact patient does have full range of motion.) Back exam: Present: full ROM. Absent: tenderness, paraspinal tenderness, vertebral tenderness Course Vital Signs 03/31/21 14:37 Temperature 97.9 F Pulse Rate 94 Respiratory 16 Rate Blood Pressure 136/85 O2 Sat by Pulse 99 Oximetry Medical Decision Making - Medical Decision Making 55-year-old female presents emergency department for a fall. Patient is a negative venous Doppler is concern for possible DVT from patient's urgent care. X-ray was obtained of the pelvis and hip no acute obvious fracture. Patient will be discharged in stable condition patient return for worsening change in symptoms return parameters were discussed. Disposition Clinical Impression: Fall, Hematoma of left thigh, Contusion of left hip Disposition: HOME SELF-CARE Condition: Stable Instructions (If sedation given, give patient instructions): Hematoma (ED) Additional Instructions: Please return to the Emergency Department if symptoms worsen or any other concerns. Is patient prescribed a controlled substance at d/c from ED?: No Referrals: Dilcia Escoto MD [Primary Care Provider] - 1-2 days Time of Disposition: 16:40
[2021-03-31] MEDS ORDERED: ACET/COD 300 MG/30 MG STARTER PACK 6 TAB BTL PO STA (16:45)
--- NOTE | 2021-03-31 16:47 | XR ---
EXAMINATION TYPE: XR Hip LT and AP Pelvis DATE OF EXAM: 03/31/2021 COMPARISON: NONE HISTORY: Pain and swelling TECHNIQUE: 3 views FINDINGS: Pelvic ring is intact. Proximal left femur and hip joint are intact. Sacroiliac joints appe ar normal. There is no evidence for fracture. IMPRESSION: Negative pelvis and left hip exam.
[2021-03-31 16:52] VITALS: BP 149/89; PULSE 88; RESP 18
== END 2021-03-31 16:51 | disposition home or self-care (01) ==
LOC: EC 14:36
DX: S70.02XA Contusion of left hip, initial encounter (principal); S70.12XA Contusion of left thigh, initial encounter; S80.12XA Contusion of left lower leg, initial encounter; S80.11XA Contusion of right lower leg, initial encounter; J45.909 Unspecified asthma, uncomplicated; F32.A Depression, unspecified; F41.9 Anxiety disorder, unspecified; Z79.890 Hormone replacement therapy; Z79.51 Long term (current) use of inhaled steroids; Z79.899 Other long term (current) drug therapy; W01.0XXA Fall on same level from slipping, tripping and stumbling without subsequent striking against object, initial encounter
CPT/HCPCS: 73502; 99284

== ENCOUNTER → 2021-08-03 | Outpatient (CLI) | payer OTHER ==
--- NOTE | 2021-08-06 16:56 | MM ---
Reason for Exam: Screening (asymptomatic). Last mammogram was performed 1 year(s) and 6 month(s) ago. Patient History: Menarche at age 10. First Full-Term at age 29. Late child-bearing (after 29). Hysterectomy at age 38. Postmenopausal. Hormonal Contraceptives for 19 years from age 14 until age 34. Risk Values: Sia 5 year model risk: 1.9%. NCI Lifetime model risk: 11.7%. Prior Study Comparison: 03/29/2015 Bilateral Screening Mammogram, [facility]. 06/24/2017 Bilateral Screening Mammogram, [facility]. 02/07/2020 Bilateral Screening Mammogram, [facility]. Tissue Density: There are scattered fibroglandular densities. Findings: Analyzed By CAD. No suspicious groups of microcalcifications, spiculated or lobular masses, architectural distortion or other secondary signs of malignancy are mammographically apparent. Overall Assessment: Benign, BI-RAD 2 Management: Screening Mammogram of both breasts in 1 year. A negative mammogram report should not preclude additional follow up of suspicious palpable abnormalities. Patient should continue monthly self breast exam. A clinical breast exam by your physician is recommended on an annual basis and results should be correlated with mammographic findings. Electronically signed and approved by: Ruben Jensen D.O. Radiologis
== END | disposition home or self-care (01) ==
LOC: RADMAMWWP 08:06
PROVIDERS: ATTEND Internal Medicine
DX: Z12.31 Encounter for screening mammogram for malignant neoplasm of breast (principal); Z78.0 Asymptomatic menopausal state
CPT/HCPCS: 77063; 77067

== ENCOUNTER 2022-09-06 08:32 | Emergency (ER) | payer OTHER ==
[2022-09-06 08:40] VITALS: TEMP 97.7
[2022-09-06] MEDS ORDERED: SODIUM CHLORIDE 0.9% 500 ML 500 ML IV STA (08:58)
[2022-09-06] MEDS ORDERED: ONDANSETRON 4 MG/2 ML VIAL IVP STA (08:58)
[2022-09-06] MEDS ORDERED: SODIUM CHLORIDE 0.9% 1,000 ML IV STA (08:58)
[2022-09-06] MEDS ORDERED: KETOROLAC 15 MG/ML 1 ML VIAL IVP STA ×2 (08:58→10:34)
[2022-09-06] MEDS ORDERED: HYDROmorphone 0.5 MG/0.5 ML SYRINGE IVP STA ×2 (08:59→10:34)
[2022-09-06 09:16] LABS: Basophils # (A) 0.1 k/uL (0-0.2); Basophils % (A) 1 %; Eosinophils # (A) 0.3 k/uL (0-0.7); Eosinophils % (A) 4 %; HCT 47.2 % (34.0-46.0); HGB 15.2 gm/dL (11.4-16.0); Lymphocytes # (A) 2.7 k/uL (1.0-4.8); Lymphocytes % (A) 34 %; MCH 27.8 pg (25.0-35.0); MCHC 32.3 g/dL (31.0-37.0); MCV 86.1 fL (80.0-100.0); Mean Platelet Volume 11.1; Monocytes # (A) 0.4 k/uL (0-1.0); Monocytes % (A) 4 %; Neutrophils # (A) 4.5 k/uL (1.3-7.7); Neutrophils % (A) 55 %; Platelet Count 176 k/uL (150-450); RBC 5.49 m/uL (3.80-5.40); RDW 13.6 % (11.5-15.5)
[2022-09-06 09:33] LABS: Mucus,Urine Rare /hpf; RBC,Urine <1 /hpf (0-5); Squamous Epithelial Cell,Urine 5 /hpf (0-4); WBC,Urine 1 /hpf (0-5)
[2022-09-06 09:34] LABS: Potassium 4.2 mmol/L (3.5-5.1)
[2022-09-06 09:35] LABS: ALT 29 U/L (4-34); AST 29 U/L (14-36); African American GFR (CKD) >90 (>60 ml/min/1.73 sqM); Alkaline Phosphatase 74 U/L (38-126); Anion Gap 7 mmol/L; Blood Urea Nitrogen 17 mg/dL (7-17); Calcium 8.9 mg/dL (8.4-10.2); Carbon Dioxide 28 mmol/L (22-30); Chloride 106 mmol/L (98-107); Glucose 103 mg/dL (74-99); Lipase 136 U/L (23-300); Non-African American GFR(CKD) >90 (>60 ml/min/1.73 sqM); Sodium 141 mmol/L (137-145); Total Bilirubin 0.5 mg/dL (0.2-1.3); Total Protein 6.8 g/dL (6.3-8.2)
[2022-09-06 09:42] LABS: Appearance,Urine Slightly Cloudy (Clear); Bilirubin Confirmation, Urine Negative (Negative); Bilirubin,Urine Negative (Negative); Blood,Urine Negative (Negative); Color,Urine YERLLOW; Glucose,Urine (UA) Negative (Negative); Ketones,Urine Negative (Negative); Leukocyte Esterase,Urine Negative (Negative); Nitrite,Urine Negative (Negative); PH, Urine 5.5 (5.0-8.0); Protein Confirmation,Urine Negative (Negative); Specific Gravity,Urine 1.025 (1.001-1.035); Urobilinogen,Urine <2.0 mg/dL (<2.0)
--- NOTE | 2022-09-06 09:42 | CT ---
EXAMINATION TYPE: CT abdomen pelvis wo con DATE OF EXAM: 09/06/2022 COMPARISON: None HISTORY: right flank pain CT DLP: 1570.8 mGycm Examination of the solid and hollow viscera is limited given the lack of contrast. FINDINGS: LUNG BASES: No evidence for nodule. No evidence for infiltrate. LIVER/GB: The gallbladder surgically absent. No space-occupying hepatic lesion. PANCREAS: No pancreatic mass identified. No inflammatory process seen. SPLEEN: No evidence for splenomegaly. No intrasplenic lesions seen. ADRENALS: No adrenal nodules identified. No evidence for thickening. KIDNEYS: No evidence for renal mass. 3.5 mm calculus upper pole right kidney and a 4.2 mm calculus lo wer pole right kidney. Additional 2 mm nonobstructing calculus lower pole right kidney. No hydronephr osis. There is right-sided gonadal vein calcifications seen. Multiple phleboliths are seen within the pelvic basin. BOWEL: Appendix has a normal appearance. No evidence of bowel obstruction. No inflammatory process. Lymph nodes: No evidence for adenopathy greater than 1 cm. Abdominal aorta: Atheromatous changes seen. No evidence for aneurysm. Genital organs: No significant abnormality. Other: No significant abnormality. IMPRESSION: 1. Right-sided nephrolithiasis without definite obstructing calculus. There are 2 calcifications with in the right gonadal vein. There are also phleboliths noted within the pelvic basin.
[2022-09-06 10:33] VITALS: BP 112/70; PULSE 72; RESP 16
[2022-09-06] MEDS ORDERED: ACET/COD 300 MG/30 MG STARTER PACK 6 TAB BTL PO STA (10:38)
--- NOTE | 2022-09-06 10:38 | ED ---
Abdominal Pain HPI - General Chief Complaint: Abdominal Pain Stated Complaint: Pain in R Side pelvic Time Seen by Provider: 09/06/22 08:50 Source: patient, RN notes reviewed Mode of arrival: ambulatory Limitations: no limitations - History of Present Illness Initial Comments: 57-year-old female presents emergency department to complaint of right-sided ab dominal pain, right flank pain. Patient states her days ago is not improved. Patient does admit that she's had a prior cholecystectomy, hysterectomy, lap and surgery and removal. Patient states that she's had no change in bowel habits no dysuria no hematuria denies any current nausea vomiting. She does have a history kidney stones but this feels much different. She states nothing really makes pain feel better or worse. No reports of fever. - Related Data Home Medications Medication Instructions Recorded Confirmed Albuterol Inhaler [Ventolin Hfa 1 - 2 puff INHALATION RT-Q6H PRN 05/10/19 05/10/19 Inhaler] Benzonatate [Tessalon Perles] 100 mg PO TID PRN 05/10/19 05/10/19 Escitalopram [Lexapro] 20 mg PO DAILY 05/10/19 05/10/19 Glucos Sul 2Kcl/MSM/Chond/C/Mn 1 cap PO DAILY 05/10/19 05/10/19 [Glucosamine Chondroitin Cap] Levothyroxine Sodium [Synthroid] 50 mcg PO DAILY 05/10/19 05/10/19 Lysine [l-Lysine] 500 mg PO DAILY 05/10/19 05/10/19 Turmeric Root Extract [Turmeric] 500 mg PO DAILY 05/10/19 05/10/19 Previous Rx's Medication Instructions Recorded ALPRAZolam [Xanax] 0.25 mg PO Q6HR PRN tab 05/13/19 Acetaminophen Tab [Tylenol] 650 mg PO Q6H tab 05/13/19 Diphenox-Atrop 2.5-0.025 mg 1 each PO Q6HR PRN tab 05/13/19 [Lomotil] Ketorolac [Toradol] 10 mg PO Q8HR #15 tab 09/06/22 Allergies Allergy/AdvReac Type Severity Reaction Status Date / Time venom-honey bee Allergy Swelling Verified 09/06/22 08:35 [bee venom (honey bee)] Review of Systems ROS Statement: Those systems with pertinent positive or pertinent negative responses have been documented in the HPI. ROS Other: All systems not noted in ROS Statement are negative. Past Medical History Past Medical History: Asthma, Sleep Apnea/CPAP/BIPAP Additional Past Medical History / Comment(s): HX OF VSD History of Any Multi-Drug Resistant Organisms: None Reported Past Surgical History: Bariatric Surgery, Hysterectomy, Orthopedic Surgery, Tonsillectomy, Tubal Ligation Additional Past Surgical History / Comment(s): LAP BAND SX NOW REMOVED, RT HAND SX Past Anesthesia/Blood Transfusion Reactions: No Reported Reaction Past Psychological History: Anxiety, Depression Smoking Status: Never smoker Past Alcohol Use History: None Reported Past Drug Use History: None Reported - Past Family History Mother Family Medical History: Hyperlipidemia, Hypertension Father Family Medical History: Liver Disease Additional Family Medical History / Comment(s): chirrosis of the liver General Exam Limitations: no limitations General appearance: alert, in no apparent distress Head exam: Present: atraumatic, normocephalic, normal inspection Eye exam: Present: normal appearance, PERRL, EOMI. Absent: scleral icterus, conjunctival injection, periorbital swelling ENT exam: Present: normal exam, normal oropharynx, mucous membranes moist Neck exam: Present: normal inspection, full ROM. Absent: tenderness, meningismus, lymphadenopathy Respiratory exam: Present: normal lung sounds bilaterally. Absent: respiratory distress, wheezes, rales, rhonchi, stridor Cardiovascular Exam: Present: regular rate, normal rhythm, normal heart sounds. Absent: systolic murmur, diastolic murmur, rubs, gallop, clicks GI/Abdominal exam: Present: soft, tenderness, normal bowel sounds. Absent: distended, guarding, rebound, rigid Course Vital Signs 09/06/22 08:35 Temperature 97.7 F Pulse Rate 71 Respiratory 18 Rate Blood Pressure 126/90 O2 Sat by Pulse 98 Oximetry Medical Decision Making - Medical Decision Making Was pt. sent in by a medical professional or institution (, PA, INTERVENTIONAL RADIOLOGY TECHNOLOGIST, urgent care, hospital, or custodial...) When possible be specific @ -No Did you speak to anyone other than the patient for history (EMS, parent, family, police, friend...)? What history was obtained from this source @ -No Did you review nursing and triage notes (agree or disagree)? Why? @ -I reviewed and agree with nursing and triage notes Were old charts reviewed (outside hosp., previous admission, EMS record, old EKG, old radiological studies, urgent care reports/EKG's, custodial records)? Report findings @ -No old charts were reviewed Differential Diagnosis (chest pain, altered mental status, abdominal pain women, abdominal pain men, vaginal bleeding, weakness, fever, dyspnea, syncope, headache, dizziness, GI bleed, back pain, seizure, CVA, palpatations, mental health, musculoskeletal)? @ -Differential Abdominal Pain Women: Appendicitis, Cholecystitis, diverticulosis, ischemic bowel, pancreatitis, h epatitis, UTI, gastroenteritis, AAA, incarcerated hernia, bowel obstruction, constipation, inflammatory bowel, hepatitis, peptic ulcer disease, splenic infarction, perforated viscus, vulvitis, ovarian torsion, PID, kidney stone, placenta abruption, this is not meant to be an all-inclusive liste EKG interpreted by me (3pts min.). @ -None X-rays interpreted by me (1pt min.). @ -None done CT interpreted b's y me (1pt min.). @ -CT abdomen pelvis shows nephrolithiasis, no other acute intra-abdominal process. U/S interpreted by me (1pt. min.). @ -None done What testing was considered but not performed or refused? (CT, X-rays, U/S, labs)? Why? @ -None What meds were considered but not given or refused? Why? @ -None Did you discuss the management of the patient with other professionals (professionals i.e. , PA, INTERVENTIONAL RADIOLOGY TECHNOLOGIST, lab, RT, psych nurse, social work case manager, case specialist, teacher, first officer, case resolution specialist)? Give summary @ -No Was smoking cessation discussed for >3mins.? @ -No Was critical care preformed (if so, how long)? @ -No Were there social determinants of health that impacted care today? How? (Homelessness, low income, unemployed, alcoholism, drug addiction, transportation, low edu. Level, literacy, decrease access to med. care, [facility], rehab)? @ -No Was there de-escalation of care discussed even if they declined (Discuss DNR or withdrawal of care, Hospice)? DNR status @ -No What co-morbidities impacted this encounter? (DM, HTN, Smoking, COPD, CAD, C ancer, CVA, ARF, Chemo, Hep., AIDS, mental health diagnosis, sleep apnea, morbid obesity)? @ -None Was patient admitted / discharged? Hospital course, mention meds given and route, prescriptions, significant lab abnormalities, going to OR and other pertinent info. @ -Discharged there is no clear indication patient's pain patient does have an kidney stones evident. Laboratory studies unremarkable. Patient will be discharged in stable condition with follow-up return parameters were discussed. Undiagnosed new problem with uncertain prognosis? @ -No Drug Therapy requiring intensive monitoring for toxicity (Heparin, Nitro, Insulin, Cardizem)? @ -No Were any procedures done? @ -No Diagnosis/symptom? @ -Right flank pain Acute, or Chronic, or Acute on Chronic? @ -Acute Uncomplicated (without systemic symptoms) or Complicated (systemic symptoms)? @ -Uncomplicated Side effects of treatment? @ -No Exacerbation, Progression, or Severe Exacerbation? @ -No Poses a threat to life or bodily function? How? (Chest pain, USA, ID, pneumonia, PE, COPD, DKA, ARF, appy, cholecystitis, CVA, Diverticulitis, Homicidal, Suicid al, threat to staff... and all critical care pts) @ -No - Lab Data Result diagrams: 09/06/22 09:03 09/06/22 09:03 Lab Results 09/06/22 09/06/22 09/06/22 Range/Units 09:03 09:03 09:03 WBC 8.0 (3.8-10.6) k/uL RBC 5.49 H (3.80-5.40) m/uL Hgb 15.2 (11.4-16.0) gm/dL Hct 47.2 H (34.0-46.0) % MCV 86.1 (80.0-100.0) fL MCH 27.8 (25.0-35.0) pg MCHC 32.3 (31.0-37.0) g/dL RDW 13.6 (11.5-15.5) % Plt Count 176 (150-450) k/uL MPV 11.1 Neutrophils % 55 % Lymphocytes % 34 % Monocytes % 4 % Eosinophils % 4 % Basophils % 1 % Neutrophils # 4.5 (1.3-7.7) k/uL Lymphocytes # 2.7 (1.0-4.8) k/uL Monocytes # 0.4 (0-1.0) k/uL Eosinophils # 0.3 (0-0.7) k/uL Basophils # 0.1 (0-0.2) k/uL Sodium 141 (137-145) mmol/L Potassium 4.2 (3.5-5.1) mmol/L Chloride 106 (98-107) mmol/L Carbon Dioxide 28 (22-30) mmol/L Anion Gap 7 mmol/L BUN 17 (7-17) mg/dL Creatinine 0.59 (0.52-1.04) mg/dL Est GFR (CKD-EPI)AfAm >90 (>60 ml/min/1.73 sqM) Est GFR (CKD-EPI)NonAf >90 (>60 ml/min/1.73 sqM) Glucose 103 H (74-99) mg/dL Plasma Lactic Acid Misael (0.7-2.0) mmol/L Calcium 8.9 (8.4-10.2) mg/dL Total Bilirubin 0.5 (0.2-1.3) mg/dL AST 29 (14-36) U/L ALT 29 (4-34) U/L Alkaline Phosphatase 74 (38-126) U/L Total Protein 6.8 (6.3-8.2) g/dL Albumin 4.0 (3.5-5.0) g/dL Lipase 136 (23-300) U/L Urine Color YERLLOW Urine Appearance Slightly Cloudy H (Clear) Urine pH 5.5 (5.0-8.0) Ur Specific [place] 1.025 (1.001-1.035) Ur Protein Confirm Negative (Negative) Urine Glucose (UA) Negative (Negative) Urine Ketones Negative (Negative) Urine Blood Negative (Negative) Urine Nitrite Negative (Negative) Urine Bilirubin Negative (Negative) Ur Bilirubin Confirm Negative (Negative) Urine Urobilinogen <2.0 (<2.0) mg/dL Ur Leukocyte Esterase Negative (Negative) Urine RBC <1 (0-5) /hpf Urine WBC 1 (0-5) /hpf Ur Squamous Epith Cells 5 H (0-4) /hpf Urine Mucus Rare H (None) /hpf 09/06/22 Range/Units 09:03 WBC (3.8-10.6) k/uL RBC (3.80-5.40) m/uL Hgb (11.4-16.0) gm/dL Hct (34.0-46.0) % MCV (80.0-100.0) fL MCH (25.0-35.0) pg MCHC (31.0-37.0) g/dL RDW (11.5-15.5) % Plt Count (150-450) k/uL MPV Neutrophils % % Lymphocytes % % Monocytes % % Eosinophils % % Basophils % % Neutrophils # (1.3-7.7) k/uL Lymphocytes # (1.0-4.8) k/uL Monocytes # (0-1.0) k/uL Eosinophils # (0-0.7) k/uL Basophils # (0-0.2) k/uL Sodium (137-145) mmol/L Potassium (3.5-5.1) mmol/L Chloride (98-107) mmol/L Carbon Dioxide (22-30) mmol/L Anion Gap mmol/L BUN (7-17) mg/dL Creatinine (0.52-1.04) mg/dL Est GFR (CKD-EPI)AfAm (>60 ml/min/1.73 sqM) Est GFR (CKD-EPI)NonAf (>60 ml/min/1.73 sqM) Glucose (74-99) mg/dL Plasma Lactic Acid Misael 1.2 (0.7-2.0) mmol/L Calcium (8.4-10.2) mg/dL Total Bilirubin (0.2-1.3) mg/dL AST (14-36) U/L ALT (4-34) U/L Alkaline Phosphatase (38-126) U/L Total Protein (6.3-8.2) g/dL Albumin (3.5-5.0) g/dL Lipase (23-300) U/L Urine Color Urine Appearance (Clear) Urine pH (5.0-8.0) Ur Specific [place] (1.001-1.035) Ur Protein Confirm (Negative) Urine Glucose (UA) (Negative) Urine Ketones (Negative) Urine Blood (Negative) Urine Nitrite (Negative) Urine Bilirubin (Negative) Ur Bilirubin Confirm (Negative) Urine Urobilinogen (<2.0) mg/dL Ur Leukocyte Esterase (Negative) Urine RBC (0-5) /hpf Urine WBC (0-5) /hpf Ur Squamous Epith Cells (0-4) /hpf Urine Mucus (None) /hpf Disposition Clinical Impression: Right flank pain Disposition: HOME SELF-CARE Condition: Stable Instructions (If sedation given, give patient instructions): Flank Pain (ED) Additional Instructions: Please return to the Emergency Department if symptoms worsen or any other concerns. Prescriptions: Ketorolac [Toradol] 10 mg PO Q8HR #15 tab Is patient prescribed a controlled substance at d/c from ED?: No Referrals: Dilcia Escoto MD [Primary Care Provider] - 1-2 days Louis Fleming MD [STAFF PHYSICIAN] - 1-2 days Time of Disposition: 10:37
== END 2022-09-06 11:05 | disposition home or self-care (01) ==
LOC: EC 08:32
DX: N20.0 Calculus of kidney (principal); G47.30 Sleep apnea, unspecified; J45.909 Unspecified asthma, uncomplicated; F41.9 Anxiety disorder, unspecified; F32.A Depression, unspecified; Z79.899 Other long term (current) drug therapy; Z91.030 Bee allergy status
CPT/HCPCS: 36415; 80053; 83605; 83690; 85025; 81001; 74176; 99284; 96360; J2405; J1885; J1170

== ENCOUNTER → 2022-12-31 | Outpatient (CLI) | payer OTHER ==
--- NOTE | 2023-01-02 00:03 | MM ---
Reason for Exam: Screening (asymptomatic). Last mammogram was performed 1 year(s) and 5 month(s) ago. Patient History: Menarche at age 10. First Full-Term at age 29. Late child-bearing (after 29). Hysterectomy at age 38. Postmenopausal. Patient has history of breast feeding. Hormonal Contraceptives for 19 years from age 14 until age 34. Risk Values: Sia 5 year model risk: 2.0%. NCI Lifetime model risk: 11.4%. Prior Study Comparison: 06/24/2017 Bilateral Screening Mammogram, [facility]. 02/07/2020 Bilateral Screening Mammogram, [facility]. 08/03/2021 Bilateral MG 3D screening mammo w/cad, [facility]. Tissue Density: There are scattered fibroglandular densities. Findings: Analyzed By CAD. There is no suspicious group of microcalcifications or new suspicious mass in either breast. Overall Assessment: Negative, BI-RAD 1 Management: Screening Mammogram of both breasts in 1 year. . Patient should continue monthly self-breast exams. A clinical breast exam by your physician is recommended on an annual basis. This exam should not preclude additional follow-up of suspicious palpable abnormalities. Note on Sia scores and lifetime risk: 1. A Sia score greater than 3% is considered moderate risk. If this is the case, consider specialist referral to assess eligibility for a risk reducing agent. 2. If overall lifetime risk for the development of breast cancer is 20% or higher, the patient may qualify for future screening with alternating mammogram and breast MRI. Electronically signed and approved by: Eitan Simpson M.D. Radiologist
== END | disposition home or self-care (01) ==
LOC: RADMAMWWP 15:53
PROVIDERS: ATTEND Internal Medicine
DX: Z12.31 Encounter for screening mammogram for malignant neoplasm of breast (principal); Z78.0 Asymptomatic menopausal state
CPT/HCPCS: 77063; 77067

== ENCOUNTER → 2024-04-20 | Outpatient (CLI) | payer OTHER ==
--- NOTE | 2024-04-20 09:22 | CT ---
EXAMINATION TYPE: CT soft tissue neck w con DATE OF EXAM: 04/20/2024 COMPARISON: NONE CLINICAL INDICATION: Female, 58 years old with history of M54.2 CERVICALGIA, RIGHT SIDED NECK LUMP TECHNIQUE: CT scan of the neck is performed with IV Contrast, patient injected with 100 mL of Isovue 300, axial images are obtained, coronal and sagittal reformatted images are reviewed. CT DLP: 836.4 mGycm. Automated Exposure Control for Dose Reduction was Utilized. FINDINGS: Airway: No gross abnormality seen. Parotid/submandibular glands: Metallic BB placed at level of palpable abnormality in the right neck b elow the right parotid gland image 53. There are few scattered subcentimeter lymph nodes throughout t he right parotid gland, largest is seen along the posterior-inferior aspect measuring 10 x 6 mm axial image 60. No concerning solid or cystic mass or abnormal fluid collection at level of the BB. There are additional prominent but subcentimeter submandibular lymph nodes at this level which are similar to the lymph node seen at the same level in the left neck. Carotid/Vascular Structures: No suspicious abnormality. Osseous Structures: Straightening of cervical spine is present. Other: Nasal septum is deviated to right of midline. Minimal mucosal thickening inferior aspect left maxillary sinus IMPRESSION: No suspicious mass identified. A few prominent but subcentimeter right intraparotid lymp h nodes. Advise repeat imaging if the area is felt to continue to enlarge or becomes painful. [facility], , 04/20/2024 9:20 AM
== END | disposition home or self-care (01) ==
LOC: RADCTMAIN 08:39
PROVIDERS: ATTEND Internal Medicine
DX: M54.2 Cervicalgia (principal); R59.0 Localized enlarged lymph nodes
CPT/HCPCS: 70491; Q9967